=== PATIENT | male | born 1985 | race Caucasian/White ===

== ENCOUNTER 2019-04-30 13:48 | Emergency (ER) | payer SELFPAY ==
[2019-04-30 14:08] VITALS: BP 112/70; PULSE 102; RESP 16; TEMP 36.7; O2SAT 97; BMI 22.9
--- NOTE | 2019-04-30 14:14 | XR_ITS ---
WS: [id number] Right shoulder, 3 views, 04/30/2019 Clinical Data: trauma Comparison: Right scapula x-ray, 09/26/2014, right shoulder, 09/26/2014.. Findings: No fractures or dislocations are seen. The AC joint is normal. The adjacent right clavicle, right sca pula and ribs are normal. The soft tissues are unremarkable. XR/XR shoulder RT min 2V* [id number] Impression: Negative right shoulder.
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
[2019-04-30 14:53] VITALS: BP 110/71; PULSE 90; RESP 16; TEMP 36.7; O2SAT 95
== END 2019-04-30 14:55 | disposition home or self-care (01) ==
PROVIDERS: Emergency Provider Nurse Practitioner Family; Family Provider Nurse Practitioner; PCP Nurse Practitioner
DX: M25.511 Pain in right shoulder (principal)
CPT/HCPCS: 73030; 99281; 99282

== ENCOUNTER 2020-03-26 21:45 | Emergency (ER) | payer SELFPAY ==
--- NOTE | 2020-03-26 21:48 | XR_ITS ---
WS: [id number] Chest with left rib detail, 03/26/2020 Clinical Data: rib pain Comparison: Portable chest, 07/28/2018. Findings: The lungs show no nodules, masses, or effusions. The heart is normal. No pneumonia or pneumothorax is seen. The ribs are intact. No rib fractures seen. No subcutaneous emphysema is present. XR/XR ribs LT mn 3V w CXR1V [id number] Impression: Negative chest with left rib detail.
[2020-03-26 21:59] VITALS: BP 157/83; PULSE 87; RESP 16; TEMP 36.9; O2SAT 98; BMI 20.7
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
[2020-03-26 22:41] VITALS: PULSE 72; RESP 18; O2SAT 98
== END 2020-03-26 22:42 | disposition home or self-care (01) ==
PROVIDERS: Emergency Provider Nurse Practitioner Family
DX: S20.212A Contusion of left front wall of thorax, initial encounter (principal); V89.2XXA Person injured in unspecified motor-vehicle accident, traffic, initial encounter
CPT/HCPCS: 12345; 71101; 99281; 99282

== ENCOUNTER 2020-07-03 22:38 | Emergency (ER) | payer SELFPAY ==
[2020-07-03 22:39] VITALS: BP 129/63; PULSE 90; RESP 18; TEMP 36.6; O2SAT 95; BMI 22.9
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
[2020-07-03] MEDS: tetanus-dipt-pertussis 0.5 mL SDV IM (23:24)
[2020-07-03 23:34] LABS: Basophils # 0.1 10^3/uL (0.0-0.1); Basophils % 0.5 %; Eosinophils # 0.2 10^3/uL (0.0-0.8); Eosinophils % 1.5 %; Hematocrit 44.4 % (42.0-52.0); Hemoglobin 14.3 g/dL (11.7-16.6); Lymphocytes # 2.3 10^3/uL (0.8-4.8); Lymphocytes % 17.9 %; Mean Corpuscular HGB Conc 32.2 g/dL (30.0-36.0); Mean Corpuscular Hemoglobin 30.1 pg (28.0-34.0); Mean Corpuscular Volume 93.5 fL (80-94); Mean Platelet Volume 9.7 fL (7.4-10.4); Monocytes # 1.1 10^3/uL (0.2-0.9); Monocytes % 8.5 %; Neutrophils # 9.27 10^3/uL (1.8-7.7); Neutrophils % 71.3 %; Nucleated Red Blood Cells % 0 %; Platelet Count 375 10^3/cmm (130-400); Red Blood Count 4.75 10^6/uL (4.1-5.3); Red Cell Distribution Width 14.1 % (12.1-15.1)
[2020-07-03 23:54] LABS: Alanine Aminotransferase 45 U/L (0-41); Albumin Level 4.3 g/dL (3.5-5.2); Alcohol Level 145 mg/dL (0-10); Alkaline Phosphatase 115 IU/L (40-130); Aspartate Amino Transferase 44 U/L (0-40); Blood Urea Nitrogen 14 mg/dL (6-20); Calcium 8.1 mg/dL (8.5-10.5); Carbon Dioxide 26 mmol/L (22-29); Chloride 107 mmol/L (98-107); Globulin 2.6 g/dL (1.3-4.6); Glomerular Filtration Rate 110.7 mL/min (90-130); Glucose 103 mg/dL (65-115); Osmolality Calculated 297 mOsm/kg (285-295); Sodium 143 mmol/L (136-145); Total Bilirubin 0.3 mg/dL (0.15-1.2); Total Protein 6.9 g/dL (6.6-8.7)
[2020-07-04] MEDS: HYDROcodone-acetaminophen 5-325 mg Tablet 1 TAB PO (00:26)
[2020-07-04 00:36] VITALS: BP 120/69; PULSE 88; RESP 18; O2SAT 94
== END 2020-07-04 00:36 | disposition home or self-care (01) ==
PROVIDERS: Emergency Provider Emergency Medicine
DX: S22.41XA Multiple fractures of ribs, right side, initial encounter for closed fracture (principal); S27.0XXA Traumatic pneumothorax, initial encounter; V49.9XXA Car occupant (driver) (passenger) injured in unspecified traffic accident, initial encounter; Z23 Encounter for immunization
CPT/HCPCS: 70450; 71045; 71250; 72125; 74176; 80053; 80307; 85025; 90471; 90715; 99283

== ENCOUNTER 2020-07-18 00:50 | Emergency (ER) | payer SELFPAY ==
[2020-07-18 00:53] VITALS: BP 128/69; PULSE 90; RESP 18; TEMP 36.7; O2SAT 96; BMI 22.9
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
[2020-07-18] MEDS: ibuprofen 600 mg Tablet PO (03:07)
[2020-07-18 03:10] VITALS: BP 142/86; PULSE 72; RESP 18; O2SAT 100
--- NOTE | 2020-07-21 13:23 | DCPLANNER ---
assistant department manager had message to speak with patient about getting established with a primary care physician. assistant department manager called phone number [phone], unable to speak with patient at this time, and unable to leave a voicemail due to no voicemail box set up.
== END 2020-07-18 03:11 | disposition home or self-care (01) ==
PROVIDERS: Emergency Provider Nurse Practitioner Family
DX: S22.31XA Fracture of one rib, right side, initial encounter for closed fracture (principal); S46.911A Strain of unspecified muscle, fascia and tendon at shoulder and upper arm level, right arm, initial encounter; X50.0XXA Overexertion from strenuous movement or load, initial encounter
CPT/HCPCS: 71046; 73030; 99283

== ENCOUNTER 2021-07-02 10:48 | Emergency (ER) | payer MEDICAID, SELFPAY ==
[2021-07-02 10:54] VITALS: BP 137/80; PULSE 71; RESP 20; TEMP 36.4; O2SAT 99; BMI 22.2
--- NOTE | 2021-07-02 11:03 | XR_ITS ---
WS: [id number] Right hand, 3 views, 07/02/2021 Clinical Data: injury Comparison: Right hand, 02/04/2019. Findings: No fractures or dislocations are seen. The soft tissues are unremarkable. The joint space s are normal The metacarpals are intact. XR/XR hand RT min 3V* [id number] Impression: Negative right hand.
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
[2021-07-02] MEDS: HYDROcodone-acetaminophen 5-325 mg Tablet 1 TAB PO (11:06)
--- NOTE | 2021-07-05 10:42 | DCPLANNER ---
Addendum entered by Radha Crawford 07/13/21 22:09: Patient had a follow up appointment scheduled with ortho on 07.07.21 - patient did attend appointment. Addendum entered by Radha Crawford 07/06/21 08:36: Patient has a follow up appointment scheduled for Wednesday, July 07, 2021 at 11:[address] De La Fuente at ortho. Clinic will call patient with appointment information. Original Note: Patient called case packer and sealer stating that he needed a referral to ortho. it infrastructure project manager sent patients information to the front staff at the ortho clinic. Patients information will be printed and reviewed. Clinic will call patient with appointment information.
== END 2021-07-02 12:20 | disposition home or self-care (01) ==
PROVIDERS: Emergency Provider Emergency Medicine
DX: M79.641 Pain in right hand (principal); F17.210 Nicotine dependence, cigarettes, uncomplicated
CPT/HCPCS: 73130; 99283

== ENCOUNTER → 2021-07-07 11:14 | Outpatient (BNVA) | payer MEDICAID, SELFPAY | PROVIDERS: Referring Provider Emergency Medicine; Visit Provider Orthopaedic Surgery | DX: S69.91XA Unspecified injury of right wrist, hand and finger(s), initial encounter (principal); X58.XXXA Exposure to other specified factors, initial encounter; M79.641 Pain in right hand | CPT/HCPCS: 73130 ==

== ENCOUNTER 2022-01-22 10:25 | Inpatient (IN) | payer MEDICAID, SELFPAY ==
[2022-01-22] VITALS (14 sets, daily range): BP systolic 96–117; BP diastolic 43–69; PULSE 73–170; RESP 15–20; TEMP 36.4–37.7; O2SAT 93–98; BMI 20.6
--- NOTE | 2022-01-22 10:42 | W.ED.ABDPA2 ---
HPI - Abdominal Pain General: Chief Complaint: Abdominal Pain Stated Complaint: abd pain Time Seen by Provider: 01/22/22 10:30 Source: patient Mode of arrival: ambulatory Limitations: no limitations History of Present Illness: 36-year-old male states over the last 2 days he has had some fevers along with nausea states has been having epigastric pain as well. He states his pain is sharp in nature and has had some nausea denies any vomiting he states his pain is a 7 out of 10. Denies any radiation of his pain he denies any chest pain. Associated Symptoms: Reports fever(s) and nausea; Denies dysuria Review of Systems Const: Reports: fever(s) Eyes: Denies: blurry vision or eye discomfort ENMT: Denies: throat pain or dental pain Card: Denies: chest pain Resp: Denies: dyspnea GI: Reports: abdominal pain and nausea : Denies: dysuria Musc: Denies: neck pain or back pain Skin/Breast: Denies: rash Neuro: Denies: headache(s) Psych: Denies: depression Dennys/Lymph: Denies: easy bruising All/Imm: Denies: urticaria PFSH ED PFSH: Social History Smoking and tobacco status: never smoked Quit status (tobacco): has tried quititng Number of times tried to quit tobacco: 1 Second hand smoke exposure: Yes Physical Exam Const: COMMON NORMALS: no acute distress, patient oriented x3 and healthy appearing HENMT: COMMON NORMALS: normocephalic and atraumatic HEAD & SCALP: normocephalic and atraumatic Eye: COMMON NORMALS: Equal, round and reactive pupils present and EOMs intact bilaterally PUPIL: Yes Equal, round and reactive pupils present Neck/C-Spine: COMMON NORMALS: full ROM and supple Chest: COMMONS NORMALS: normal inspection of the chest and normal palpation of entire chest wall Resp: COMMON NORMALS: normal respiratory effort, No retractions, No use of accessory muscles and clear to auscultation bilaterally AUSCULTATION: clear to auscultation bilaterally Cardio: COMMON NORMALS: regular rate, regular rhythm and No murmurs present (Cardio) RATE: regular rate RHYTHM: regular rhythm GI: COMMON NORMALS: Normal to inspection, nondistended, normoactive bowel sounds present, Soft to palpation and no masses PALPATION: Yes Soft to palpation OTHER: epigastric tenderness Extremity: COMMON NORMALS: normal to inspection and full ROM Neuro: COMMON NORMALS: patient oriented x3, moves all extremities and no focal motor deficits Psych: COMMON NORMALS: mental status grossly normal, Normal thought process present and cooperative THOUGHT PROCESS: Normal thought process present Skin: COMMON NORMALS: no rashes or lesions noted and no wounds GENERAL SKIN EXAM: no rashes or lesions noted Course Vital Signs: Vital signs: Vital Signs Temperature 99.8 F H 01/22/22 11:25 Pulse Rate 109 H 01/22/22 12:30 Respiratory Rate 20 H 01/22/22 12:30 Blood Pressure 96/43 01/22/22 12:30 Pulse Oximetry 95 01/22/22 12:30 Oxygen Delivery Me thod 01/22/22 12:30 MDM - Abdominal Pain Medical Decision Making Patient presents with pyelonephritis he is febrile does have an elevated white count lactate is normal his blood pressure is improved here with IV fluids CT shows bilateral pyelonephritis no kidney stone spoke to hospitalist will admit for IV antibiotics. Lab Data : 01/22/22 11:15 01/22/22 12:20 Labs/Radiology: Radiology Impressions Abdomen/Pelvis CT 01/22/22 10:43 IMPRESSION: Bilateral peripheral linear and wedge-shaped areas of hypoattenuation in the renal parenchyma, concerning for pyelonephritis. Chest X-Ray 01/22/22 10:43 IMPRESSION: No acute cardiopulmonary abnormality identified. Laboratory Results WBC 14.8 10^3/uL (4.0-10.0) H 01/22/22 11:15 RBC 4.64 10^6/uL (4.1-5.3) 01/22/22 11:15 Hgb 13.9 g/dL (11.7-16.6) 01/22/22 11:15 Hct 42.1 % (42.0-52.0) 01/22/22 11:15 MCV 90.7 fl (80-94) 01/22/22 11:15 MCH 30.0 pg (28.0-34.0) 01/22/22 11:15 MCHC 33.0 g/dL (30.0-36.0) 01/22/22 11:15 RDW 13.8 % (12.1-15.1) 01/22/22 11:15 Plt Count 233 10^3/cmm (130-400) 01/22/22 11:15 MPV 12.2 fL (7.4-10.4) H 01/22/22 11:15 Neut % (Auto) 88.8 % 01/22/22 11:15 Lymph % (Auto) 2.1 % 01/22/22 11:15 [place] % (Auto) 8.6 % 01/22/22 11:15 Eos % (Auto) 0.1 % 01/22/22 11:15 Baso % (Auto) 0.4 % 01/22/22 11:15 Neut # (Auto) 11.76 10^3/uL (1.8-7.7) H 01/22/22 11:15 Lymph # (Auto) 0.3 10^3/uL (0.8-4.8) L 01/22/22 11:15 [place] # (Auto) 1.3 10^3/uL (0.2-0.9) H 01/22/22 11:15 Eos # (Auto) 0.0 10^3/uL (0.0-0.8) 01/22/22 11:15 Baso # (Auto) 0.1 10^3/uL (0.0-0.1) 01/22/22 11:15 Nucleated RBC % (auto) 0 % 01/22/22 11:15 Nucleated RBCs # 0.0 /100WBC 01/22/22 11:15 Sodium 134 mmol/L (136-145) L 01/22/22 12:20 Potassium 3.9 mmol/L (3.5-5.1) 01/22/22 12:20 Chloride 96 mmol/L (98-107) L 01/22/22 12:20 Carbon Dioxide 24 mmol/L (22-29) 01/22/22 12:20 Anion Gap 17.9 (5-19) 01/22/22 12:20 BUN 28 mg/dL (6-20) H 01/22/22 12:20 Creatinine 1.6 mg/dL (0.7-1.2) H 01/22/22 12:20 GFR Calculation 49.4 mL/min (90-130) L 01/22/22 12:20 Glucose 83 mg/dL (65-115) 01/22/22 12:20 Calculated Osmolality 283 mOsm/kg (285-295) L 01/22/22 12:20 Lactic Acid 2.2 mmol/L (0.5-2.2) 01/22/22 12:20 Calcium 8.1 mg/dL (8.5-10.5) L 01/22/22 12:20 Total Bilirubin 0.5 mg/dL (0.15-1.2) 01/22/22 12:20 AST 23 U/L (0-40) 01/22/22 12:20 ALT 24 U/L (0-41) 01/22/22 12:20 Alkaline Phosphatase 79 U/L (40-130) 01/22/22 12:20 Total Protein 5.8 g/dL (6.6-8.7) L 01/22/22 12:20 Albumin 2.9 g/dL (3.5-5.2) L 01/22/22 12:20 Globulin 2.9 g/dL (1.3-4.6) 01/22/22 12:20 Lipase 5 U/L (13-60) L 01/22/22 12:20 Urine Color Dark yellow (Yellow) 01/22/22 10:35 Urine Appearance Clear (CLEAR) 01/22/22 10:35 Urine pH 5 (5-7) 01/22/22 10:35 Ur Specific [place] 1.015 (1.005-1.030) 01/22/22 10:35 Urine Protein 2+ (Negative) H 01/22/22 10:35 Urine Glucose (UA) Norm (Normal) 01/22/22 10:35 Urine Ketones Negative (Negative) 01/22/22 10:35 Urine Blood 3+ (Negative) H 01/22/22 10:35 Urine Nitrate Positive (Negative) H 01/22/22 10:35 Urine Bilirubin Neg (Negative) 01/22/22 10:35 Urine Urobilinogen 1 mg/dL (Negative) H 01/22/22 10:35 Ur Leukocyte Esterase 2+ (Negative) H 01/22/22 10:35 Urine RBC 5-10 /hpf (0-2) H 01/22/22 10:35 Urine WBC 40-55 /hpf (0-5) H 01/22/22 10:35 Ur Squamous Epith Cells None /hpf (0-5) 01/22/22 10:35 Amorphous Sediment Not Reportable 01/22/22 10:35 Urine Bacteria 2+ /hpf (NONE) H 01/22/22 10:35 Influenza Type A Ag Negative (Negative) 01/22/22 12:10 Influenza Type B Ag Negative (Negative) 01/22/22 12:10 SARS-CoV-2 Ag (Rapid) negative (Negative) 01/22/22 11:15 Discharge Plan Discharge Patient Disposition: Admitted As Inpatient Clinical Impression: Pyelonephritis Condition: Stable Prescriptions: No Action fluoxetine [Prozac] 20 mg capsule 20 mg PO DAILY Qty: 30 2RF hydrocodone-acetaminophen 5-325 mg tablet 1 tab PO Q6H PRN (Reason: pain) 7 Days Qty: 14 0RF ibuprofen [IBU] 600 mg tablet 600 mg PO TID PRN (Reason: pain) Qty: 20 0RF Rx Instructions: take 1 PO TID PRN pain - take with food to avoid stomach upset prazosin 5 mg capsule 5 mg PO BEDTIME Patient Instructions: Opioid Safety, Pain Management Coding Level of Care Code ED Sample Display Preparer for Maria De Jesus Fwd Exam Comprehensive
--- NOTE | 2022-01-22 10:43 | CTR_ITS ---
PROCEDURE INFORMATION: Exam: CT Abdomen And Pelvis With Contrast Exam date and time: 01/22/2022 11:38 AM Age: 36 years old Clinical indication: Abdominal pain; Generalized; Additional info: Abd pain TECHNIQUE: Imaging protocol: Computed tomography of the abdomen and pelvis with contrast. Radiation optimization: All CT scans at this facility use at least one of these dose optimization techniques: automated exposure control; mA and/or kV adjustment per patient size (includes targeted exams where dose is matched to clinical indication); or iterative reconstruction. Contrast material: OMNI 350; Contrast volume: 100 ml; Contrast route: INTRAVENOUS (IV); COMPARISON: CT chest abd pel wo con 07/03/2020 11:22 PM RADIATION DOSE METRICS: Total DLP (mGy-cm): 393.05 FINDINGS: Liver: Liver is mildly enlarged for size, similar to prior exam. Area of hypoattenuation along the anterior margin of the liver adjacent to the falciform ligament consistent with focal fatty infiltration. Gallbladder and bile ducts: The gallbladder is distended with normal wall thickness and does not demonstrate calcified gallstones. No intra- or extra-hepatic biliary ductal dilatation. Pancreas: The pancreas appears normal. Spleen: The spleen appears normal. Adrenal glands: The adrenals appear normal. Kidneys and ureters: Bilateral peripheral linear and wedge-shaped areas of hypoattenuation in the renal parenchyma. No significant perinephric fat stranding. No hydronephrosis or hydroureter. No renal or ureteral stones. Stomach and bowel: The stomach is unremarkable. The small bowel loops are not abnormally dilated. The large bowel loops are not abnormally dilated. Appendix: No signs of appendicitis. Intraperitoneal space: No ascites or significant fluid collection. Vasculature: The aorta is nonaneurysmal. The IVC appears normal. Lymph nodes: There are no enlarged lymph nodes. Urinary bladder: The bladder is distended and demonstrates no focal contour abnormality. Reproductive: Unremarkable as visualized. Bones/joints: Unremarkable. Soft tissues: Unremarkable. CT/CT abdomen pelvis w con* [id number] IMPRESSION: Bilateral peripheral linear and wedge-shaped areas of hypoattenuation in the renal parenchyma, concerning for pyelonephritis.
--- NOTE | 2022-01-22 10:43 | XRR_ITS ---
PROCEDURE INFORMATION: Exam: XR Chest Exam date and time: 01/22/2022 10:51 AM Age: 36 years old Clinical indication: Fever TECHNIQUE: Imaging protocol: Radiologic exam of the chest. Views: 1 view. COMPARISON: CR XR chest 2V* [id number] 07/18/2020 2:11 AM FINDINGS: Lungs: The lung parenchyma is clear. Pleural spaces: No pneumothorax. No pleural effusion. Heart/Mediastinum: The cardiomediastinal silhouette is within normal limits. Bones/joints: Signs old right posterior 3rd rib fracture. XR/XR chest 1V portable [id number] IMPRESSION: No acute cardiopulmonary abnormality identified.
[2022-01-22] MEDS: morphine 4 mg/mL SDV 1 mL IVP (11:03)
[2022-01-22] MEDS: ondansetron 2 mg/ML SDV 2 mL 4 MG IVP (11:03)
[2022-01-22] MEDS: acetaminophen 325 mg Tablet 650 MG PO (11:04)
[2022-01-22] MEDS: diphenhydrAMINE 50 mg/mL SDV 1mL IVP (11:04)
[2022-01-22] MEDS: sodium chloride 0.9% 1,000 ML 999 ML IV ×2 (11:16→12:48)
[2022-01-22 11:40] LABS: Basophils # 0.1 10^3/uL (0.0-0.1); Basophils % 0.4 %; Eosinophils % 0.1 %; Hematocrit 42.1 % (42.0-52.0); Hemoglobin 13.9 g/dL (11.7-16.6); Lymphocytes # 0.3 10^3/uL (0.8-4.8); Lymphocytes % 2.1 %; Mean Corpuscular Volume 90.7 fl (80-94); Mean Platelet Volume 12.2 fL (7.4-10.4); Monocytes # 1.3 10^3/uL (0.2-0.9); Monocytes % 8.6 %; Neutrophils # 11.76 10^3/uL (1.8-7.7); Nucleated Red Blood Cells % 0 %; Platelet Count 233 10^3/cmm (130-400); Red Blood Count 4.64 10^6/uL (4.1-5.3); Red Cell Distribution Width 13.8 % (12.1-15.1); White Blood Count 14.8 10^3/uL (4.0-10.0)
[2022-01-22] MEDS: iohexol 350 mg/mL 500 mL Btl (per mL) IV (11:40)
[2022-01-22 11:42] LABS: Neutrophils % 88.8 %
[2022-01-22 11:47] LABS: Add Urine Microscopic? YES; Bilirubin Urine Neg (Negative); Blood Urine 3+ (Negative); Glucose Urine UA Norm (Normal); Ketones Urine Negative (Negative); Leukocyte Esterase Urine 2+ (Negative); Nitrate Urine Positive (Negative); Protein Urine 2+ (Negative); Specific Gravity, Urine 1.015 (1.005-1.030); Urine Appearance Clear (CLEAR); Urine Color Dark Yellow (Yellow); Urobilinogen Urine 1 mg/dL (Negative); pH Urine 5 (5-7)
[2022-01-22 11:53] LABS: WBC Urine 40-55 /hpf (0-5)
[2022-01-22 11:54] LABS: Add Urine Culture? Yes; Bacteria Urine 2+ /hpf
[2022-01-22 12:21] LABS: SARS Covid-2 Antigen negative (Negative)
[2022-01-22] MEDS: cefTRIAXone 1,000 MG in sodium chloride 0.9% (plus) 50 ML 100 MG IV ×2 (12:22→15:42)
[2022-01-22] MEDS: HYDROmorphone 1 mg/mL INJ 1 mL IVP (12:27)
[2022-01-22 12:38] LABS: Influenza A by IFA Negative (Negative); Influenza B by IFA Negative (Negative)
[2022-01-22 12:57] LABS: Alanine Aminotransferase 24 U/L (0-41); Albumin Level 2.9 g/dL (3.5-5.2); Alkaline Phosphatase 79 U/L (40-130); Anion Gap 17.9 (5-19); Aspartate Amino Transferase 23 U/L (0-40); Blood Urea Nitrogen 28 mg/dL (6-20); Calcium 8.1 mg/dL (8.5-10.5); Carbon Dioxide 24 mmol/L (22-29); Chloride 96 mmol/L (98-107); Globulin 2.9 g/dL (1.3-4.6); Glomerular Filtration Rate 49.4 mL/min (90-130); Glucose 83 mg/dL (65-115); Lipase 5 U/L (13-60); Osmolality Calculated 283 mOsm/kg (285-295); Potassium 3.9 mmol/L (3.5-5.1); Sodium 134 mmol/L (136-145); Total Bilirubin 0.5 mg/dL (0.15-1.2); Total Protein 5.8 g/dL (6.6-8.7)
[2022-01-22 12:58] LABS: Lactic Sepsis W/Reflex 2.2 mmol/L (0.5-2.2)
[2022-01-22 14:18] LABS: Reflex Lactate Order REFLEX LACTIC ORDERD
--- NOTE | 2022-01-22 15:22 | P.HP_ITS ---
Providers/Chief Complaint Admitting Physician: Kwsai Dawkins MD Chief Complaint: abd pain History of Present Illness Griffin Long SR is a 36 year old male with past medical history of ADHD on Adderall presents to the ER today because of bilateral flank pain going on for last 4 days associated with nausea, vomiting, dysuria and difficulty in urine output along with decreased urine output for 3 days. In the ER he was found to have elevated white count. CT abdomen pelvis was done which is concerning for possible bilateral pyelonephritis. Hospitalist team was consulted for admission and further evaluation and management. Review of Systems General: Reports: 10 or more systems reviewed and unremarkable except in HPI and below Const: Denies: fever(s), chills, body aches, change in appetite, change in weight, malaise, night sweats, diaphoresis, change in sleep pattern, daytime sleepiness or snoring Eyes: Denies: change in vision, blurry vision, photophobia, eye discomfort or eye discharge ENMT: Denies: throat pain, enlarged tonsils, hoarseness, mouth pain, oral sores, dry mouth, tinnitus, nasal congestion or post nasal drip Card: Denies: chest pain, palpitations, irregular heart rhythm, edema, swelling of feet/ankles, lightheadedness, syncope, pre-syncope, dyspnea on exertion, orthopnea, leg pain with exertion or acrocyanosis Resp: Denies: dyspnea, productive cough, non-productive cough, wheezing, stridor, pain on inspiration, change in phlegm color, hemoptysis or chest congestion GI: Denies: abdominal pain, nausea, vomiting, hematemesis, coffee ground emesis, dysphagia, heartburn, diarrhea, constipation, bloating, GI cramping, change in bowel habits, pain on defecation, hematochezia or melena : Denies: flank pain, difficulty urinating, dysuria, urinary frequency, urinary urgency, urinary hesitancy, urinary dribbling, difficulty starting urination, change in urine stream, nocturia or hematuria Musc: Denies: neck pain, back pain, extremity pain, joint pain, joint swelling, joint redness, joint stiffness or limited range of motion Neuro: Denies: headache(s), numbness in extremities, weakness in extremities, sensory changes, lack of coordination, difficulty walking, frequent falls, dizziness, vertigo, confusion, Slurred speech present, difficulty communicating thoughts or seizure-like activity Psych: Denies: anxiety, depression, mood swings, panic attacks, hopelessness or irritability Endo: Denies: polyuria, polydipsia, tired all the time, cold intolerance, excessive sweating, flushing or heat intolerance Dennys/Lymph: Denies: easy bruising or easy bleeding All/Imm: Denies: tongue swelling, facial swelling or acute wheezing Medications/Allergies Home Medications Medication Instructions Recorded Confirmed Last Taken Type dextroamphetamine-amphetamine ER 10 mg PO BID 01/22/22 01/22/22 01/21/22 History 10 mg 24hr capsule,extend release dicyclomine 10 mg capsule 10 mg PO BID PRN Abdominal 01/22/22 01/22/22 Unknown History Discomfort gabapentin 300 mg capsule 300 mg PO TID 01/22/22 01/22/22 01/21/22 History montelukast 10 mg tablet 10 mg PO DAILY 01/22/22 01/22/22 01/21/22 History trazodone 50 mg tablet 50 mg PO BEDTIME 01/22/22 01/22/22 01/21/22 History Allergies Allergy/AdvReac Type Severity Reaction Status Date / Time contrast dye Allergy Intermediate ALGY-Rash Uncoded 07/07/21 11:04 PFSH Acute PFSH: Medical History (Updated 01/22/22 @ 15:34 by Kwasi Dawkins MD) Alcohol use disorder, moderate, dependence Generalized anxiety disorder Major depressive disorder, recurrent severe without psychotic features Nicotine dependence, unspecified, uncomplicated Post-traumatic stress disorder, chronic Social History (Updated 01/22/22 @ 15:23 by Kwasi Dawkins MD) Smoking and tobacco status: current every day smoker cigarettes Packs smoked per day: 1 Years cigarettes smoked: 20 Quit status (tobacco): has tried quititng Number of times tried to quit tobacco: 1 Second hand smoke exposure: Yes Vitals/I&O/Wt Last Vital Signs Temp 99.8 F H 01/22/22 11:25 Pulse 109 H 01/22/22 12:30 Resp 20 H 01/22/22 12:30 BP 117/60 01/22/22 14:44 Pulse Ox 95 01/22/22 12:30 O2 Del Method 01/22/22 12:30 01/22/22 01/22/22 01/22/22 06:59 14:59 22:59 Intake Total 1000 / 1000 Balance 1000 / 1000 Weight last 48 hrs Weight 65.317 kg Physical Exam Narrative: General: No acute distress, AO x3 HEENT: PERRLA, pupils bilaterally equal and reactive Chest: Normal vesicular breath sounds, no added sounds, equal good air entry bilaterally CVS: S1-S2 regular, no murmurs, no tachycardia, no gallops, no rubs Abdomen: Soft, nontender, no organomegaly, bowel sounds present, bilateral flank pain present Neuro: No focal deficits, no facial deformity, AO x3, power 5/5 in all limbs Data : 01/23/22 05:00 01/23/22 05:00 Micro: Microbiology 01/22/22 12:25 Blood Culture - Preliminary Blood SPECIMEN COLLECTED 01/22/22 12:25 Blood Culture - Preliminary Blood SPECIMEN COLLECTED A&P Assessment and plan (1) Sepsis: Present on admission. Ruled in for tachycardia, fever, leukocytosis, endorgan damage with kidney disorder. Qualifiers: Acute renal failure type: with acute tubular necrosis Sepsis acute organ dysfunction status: with acute organ dysfunction Severe sepsis acute organ dysfunction type: acute renal failure (2) Pyelonephritis: Seen on CT scan. Bilateral. No obstructive uropathy. Follow blood culture, urine culture. Continue with empiric ceftriaxone for now. Will de-escalate as per culture results. IV fluids with normal saline at 75 cc/h. Keep neuro pressure over 65. Tylenol for fever. (3) Alcohol use disorder, moderate, dependence: Check alcohol level. Urine drug screen. [facility] protocol. (4) Acute kidney injury: Present on admission. Most likely secondary to sepsis. IV fluid as above. Check urine lites, urine creatinine. Medical reconciliation done for nephrotoxic drugs. Monitor BMP daily. Attestations Medical Necessity Statement*: admission for more than 2 midnights for management of sepsis secondary to pyelonephritis Time Spent in Patient Care: Greater than 35 minutes Coding Level of Care Code Acute Provider Education Specialist for [facility] Fwd Diagnoses Sepsis A41.9 Acute renal failure type: with acute tubular necrosis Sepsis acute organ dysfunction status: with acute organ dysfunction Severe sepsis acute organ dysfunction type: acute renal failure Pyelonephritis N12 Alcohol use disorder, moderate, dependence F10.20 Acute kidney injury N17.9
[2022-01-22] MEDS: morphine 4 mg/mL SDV 1 mL 2 MG IVP ×3 (15:37→23:35)
[2022-01-22] MEDS: heparin 5,000 unit/mL INJ 1 mL 5000 UNIT SUBCUT ×2 (15:44→23:23)
[2022-01-22 16:41] LABS: Iron 7 ug/dL (59-158); Lactic Acid level (Lactate) 2.3 mmol/L (0.5-2.2); Percent Saturation 3.4 % (20-50); Total Iron Binding Capacity 204 mcg/dl; Unsaturated Iron Binding 197 ug/dL (112-347)
[2022-01-22 16:48] LABS: Thyroid Stimulating Hormone 0.21 uIU/mL (0.27-4.20)
[2022-01-22 16:49] LABS: Alcohol Level < 10 mg/dL (0-10)
[2022-01-22 16:54] LABS: Folate Level 4.5 ng/mL (4.5-32.2)
[2022-01-22 16:55] LABS: Procalcitonin 9.81 ng/mL (0-0.5); Vitamin B12 1217 pg/mL (232-1245)
[2022-01-22] MEDS: sodium chloride 0.9% 1,000 ML 75 ML IV (17:56)
[2022-01-22] MEDS: HYDROcodone-acetaminophen 5-325 mg Tablet 1 TAB PO (17:56)
[2022-01-22] MEDS: ferrous gluconate 324 mg Tablet PO (17:56)
[2022-01-22] MEDS: famotidine 20 mg Tablet PO (17:56)
[2022-01-22] MEDS: gabapentin 300 mg Capsule PO (20:11)
[2022-01-22] MEDS: trazodone 50 mg Tablet PO (20:11)
[2022-01-23] VITALS (8 sets, daily range): BP systolic 104–133; BP diastolic 60–80; PULSE 62–68; RESP 15–18; TEMP 36.6–36.7; O2SAT 95–98
[2022-01-23] MEDS: HYDROcodone-acetaminophen 5-325 mg Tablet 1 TAB PO ×3 (01:28→18:38)
[2022-01-23] MEDS: acetaminophen 325 mg Tablet 650 MG PO ×4 (02:26→23:14)
[2022-01-23] MEDS: morphine 4 mg/mL SDV 1 mL 2 MG IVP ×4 (04:33→19:49)
[2022-01-23 05:38] LABS: Hematocrit 36.5 % (42.0-52.0); Hemoglobin 11.4 g/dL (11.7-16.6); Mean Corpuscular HGB Conc 31.2 g/dL (30.0-36.0); Mean Corpuscular Hemoglobin 29.7 pg (28.0-34.0); Mean Corpuscular Volume 95.1 fl (80-94); Platelet Count 232 10^3/cmm (130-400); Red Blood Count 3.84 10^6/uL (4.1-5.3); Red Cell Distribution Width 14.3 % (12.1-15.1); White Blood Count 16.1 10^3/uL (4.0-10.0)
[2022-01-23 06:01] LABS: Alanine Aminotransferase 23 U/L (0-41); Albumin Level 2.6 g/dL (3.5-5.2); Alkaline Phosphatase 128 U/L (40-130); Anion Gap 13.8 (5-19); Aspartate Amino Transferase 20 U/L (0-40); Blood Urea Nitrogen 30 mg/dL (6-20); Calcium 9.2 mg/dL (8.5-10.5); Carbon Dioxide 24 mmol/L (22-29); Chloride 102 mmol/L (98-107); Chol HDL Ratio 4.11 mg/dL (1.0-5.00); Cholesterol 78 mg/dL (0-200); Globulin 3.2 g/dL (1.3-4.6); Glomerular Filtration Rate 76.2 mL/min (90-130); Glucose 144 mg/dL (65-115); HDL Cholesterol 19 mg/dL (60-100); LDL Cholesterol Calculated 24 mg/dL (50-129); Osmolality Calculated 289 mOsm/kg (285-295); Potassium 4.8 mmol/L (3.5-5.1); Sodium 135 mmol/L (136-145); Total Bilirubin 0.2 mg/dL (0.15-1.2); Total Protein 5.8 g/dL (6.6-8.7); Triglycerides 176 mg/dL (0-150); VLDL Cholestrol Calculation 35 mg/dL (0-30)
[2022-01-23 06:06] LABS: Estmated Average Glucose 100; Hemoglobin A1C 5.1 % (4.0-6.0)
[2022-01-23 06:08] LABS: Total Cells Counted 100 (0-100)
[2022-01-23 06:10] LABS: Absolute Neutrophil 14.3 10^3/cmm (1.4-6.5); Absolute Segmented Neutrophil 12.2 10/cmm (1.6-7.1); Band Neutrophils Absolute 2.1 10^3/cmm (0.0-1.2); Eosinophils 0 %; Lymphocytes 5 %; Lymphocytes Absolute 0.8 10^3/cmm (1.2-3.4); Platelet Estimate Normal (Normal); Segmented Neutrophils 76 %
[2022-01-23 06:11] LABS: Dohle Bodies 1+; Giant Platelets Trace; Toxic Granulation 1+
[2022-01-23] MEDS: sodium chloride 0.9% 1,000 ML 75 ML IV (06:31)
[2022-01-23 07:05] LABS: Amphetamines Screen Urine Positive (Negative); Barbiturates Screen Urine Negative (Negative); Benzodiazepines Screen Urine Negative (Negative); Cocaine Screen Urine Negative (Negative); Opiate Screen Urine Positive (Negative); PCP Screen Urine Negative (Negative); THC Screen Urine Positive (Negative)
[2022-01-23 07:18] LABS: Potassium, Radom Urine 21 mmol/L; Urine Creatinine 62 mg/dL (39-259); Urine Random Chloride 47 mmol/L; Urine Random Sodium 51 mmol/L
[2022-01-23] MEDS: ferrous gluconate 324 mg Tablet PO ×2 (08:48→18:38)
[2022-01-23] MEDS: gabapentin 300 mg Capsule PO ×3 (08:48→20:40)
[2022-01-23] MEDS: famotidine 20 mg Tablet PO ×2 (08:49→18:43)
[2022-01-23] MEDS: heparin 5,000 unit/mL INJ 1 mL 5000 UNIT SUBCUT ×3 (08:51→23:17)
--- NOTE | 2022-01-23 11:12 | P.PN_ITS ---
Subjective Subjective: No acute events overnight. Patient denies any nausea vomiting, headache. States he is feeling a lot better now. States flank pain is resolving. He is able to pass more urine without much dysuria though still has occasional burning. Has remained hemodynamically stable and afebrile. Vitals/I&O/Wt Last Vital Signs Temp 98.0 F 01/23/22 07:24 Pulse 62 01/23/22 07:24 Resp 15 01/23/22 07:24 BP 110/67 01/23/22 07:24 Pulse Ox 96 01/23/22 07:24 O2 Del Method 01/23/22 07:24 01/22/22 01/23/22 01/23/22 23:59 06:59 14:59 Intake Total 480 / 480 Output Total Balance 480 / 480 Weight last 48 hrs Weight 65.317 kg Weight 65.317 kg Weight 65.317 kg Physical Exam Narrative: General: No acute distress, AO x3 HEENT: PERRLA, pupils bilaterally equal and reactive Chest: Normal vesicular breath sounds, no added sounds, equal good air entry bilaterally CVS: S1-S2 regular, no murmurs, no tachycardia, no gallops, no rubs Abdomen: Soft, nontender, no organomegaly, bowel sounds present, bilateral flank pain present Neuro: No focal deficits, no facial deformity, AO x3, power 5/5 in all limbs Data : 01/23/22 05:00 01/23/22 05:00 Micro: Microbiology 01/22/22 10:35 Urine Culture - Preliminary Urine,Clean Catch Gram Negative Rods 01/22/22 12:25 Blood Culture - Preliminary Blood SPECIMEN COLLECTED 01/22/22 12:25 Blood Culture - Preliminary Blood SPECIMEN COLLECTED A&P Assessment and plan (1) Sepsis: Present on admission. Ruled in for tachycardia, fever, leukocytosis, endorgan damage with kidney disorder. Qualifiers: Sepsis acute organ dysfunction status: with acute organ dysfunction Severe sepsis acute organ dysfunction type: acute renal failure Acute renal failure type: with acute tubular necrosis (2) Pyelonephritis: Patient continues to have leukocytosis but clinically feeling a lot better now. Has remained afebrile. Seen on CT scan. Bilateral. No obstructive uropathy. Follow-up blood cultures. Urine cultures preliminary positive for gram-negative rods. Continue with empiric ceftriaxone for now. Will change antibiotics as per culture speciation and sensitivities. Stop IV fluids. Patient eating well. Keep neuro pressure over 65. Tylenol for fever. (3) Alcohol use disorder, moderate, dependence: Check alcohol level. Urine drug screen. [facility] protocol. (4) Acute kidney injury: Present on admission. Most likely secondary to sepsis. Resolved. Medical reconciliation done for nephrotoxic drugs. Monitor BMP daily. Plan Urine drug screen positive for amphetamines most likely secondary to consumption of Adderall at home for ADHD. Regular diet. Famotidine for PUD prophylaxis Heparin for DVT prophylaxis. Discharge planning: Plan to discharge home with caregiver once medically stable. Attestations Medical Necessity Statement*: Requires further hospitalization for management of bilateral pyelonephritis Time Spent in Patient Care: Greater than 35 minutes Coding Level of Care Code Acute Building Admin for [facility] Fwd Diagnoses Sepsis A41.9 Sepsis acute organ dysfunction status: with acute organ dysfunction Severe sepsis acute organ dysfunction type: acute renal failure Acute renal failure type: with acute tubular necrosis Pyelonephritis N12 Alcohol use disorder, moderate, dependence F10.20 Acute kidney injury N17.9
[2022-01-23 11:16] LABS: Eosinophil Urine No Eosinophils Seen; Urine Eosinophil Count 0 (0-0)
[2022-01-23] MEDS: cefTRIAXone 1,000 MG in sodium chloride 0.9% (plus) 50 ML 100 MG IV (15:08)
[2022-01-23] MEDS: trazodone 50 mg Tablet PO (20:40)
[2022-01-24] VITALS (11 sets, daily range): BP systolic 113–135; BP diastolic 65–77; PULSE 77–101; RESP 13–20; TEMP 36.8–39.3; O2SAT 90–98
[2022-01-24] MEDS: morphine 4 mg/mL SDV 1 mL 2 MG IVP ×2 (00:31→05:04)
--- NOTE | 2022-01-24 00:39 | PC.NURSE ---
FEVER Fever 100.3 with VS check. Already received po Tylenol. Also continues to c/o headache tonight. Cool cloth to forehead and across eyes. O2 sat was 90%. No SOB. Placed on 2l NC while febrile and also received IV Morphine for pain. Sat up to 96%
[2022-01-24] MEDS: HYDROcodone-acetaminophen 5-325 mg Tablet 1 TAB PO ×3 (03:23→20:16)
[2022-01-24 05:39] LABS: Basophils # 0.1 10^3/uL (0.0-0.1); Basophils % 0.6 %; Eosinophils % 0.3 %; Hemoglobin 12.1 g/dL (11.7-16.6); Lymphocytes # 1.2 10^3/uL (0.8-4.8); Lymphocytes % 10.3 %; Mean Corpuscular HGB Conc 32.7 g/dL (30.0-36.0); Mean Corpuscular Hemoglobin 29.4 pg (28.0-34.0); Mean Corpuscular Volume 89.8 fl (80-94); Mean Platelet Volume 10.9 fL (7.4-10.4); Monocytes # 1.9 10^3/uL (0.2-0.9); Monocytes % 15.6 %; Neutrophils # 8.66 10^3/uL (1.8-7.7); Neutrophils % 71.6 %; Nucleated Red Blood Cells % 0 %; Platelet Count 219 10^3/cmm (130-400); Red Blood Count 4.12 10^6/uL (4.1-5.3); Red Cell Distribution Width 14.4 % (12.1-15.1); White Blood Count 12.1 10^3/uL (4.0-10.0)
[2022-01-24 06:03] LABS: Alanine Aminotransferase 23 U/L (0-41); Albumin Level 2.7 g/dL (3.5-5.2); Alkaline Phosphatase 134 U/L (40-130); Anion Gap 13.1 (5-19); Aspartate Amino Transferase 21 U/L (0-40); Blood Urea Nitrogen 26 mg/dL (6-20); Calcium 9.1 mg/dL (8.5-10.5); Carbon Dioxide 27 mmol/L (22-29); Chloride 97 mmol/L (98-107); Globulin 3.4 g/dL (1.3-4.6); Glomerular Filtration Rate 57.7 mL/min (90-130); Glucose 84 mg/dL (65-115); Osmolality Calculated 280 mOsm/kg (285-295); Potassium 4.1 mmol/L (3.5-5.1); Sodium 133 mmol/L (136-145); Total Bilirubin 0.3 mg/dL (0.15-1.2); Total Protein 6.1 g/dL (6.6-8.7)
[2022-01-24] MEDS: acetaminophen 325 mg Tablet 650 MG PO ×2 (07:48→19:14)
[2022-01-24] MEDS: ferrous gluconate 324 mg Tablet PO ×2 (07:49→17:24)
[2022-01-24] MEDS: famotidine 20 mg Tablet PO ×2 (07:49→17:24)
[2022-01-24] MEDS: gabapentin 300 mg Capsule PO ×3 (07:49→20:16)
[2022-01-24] MEDS: heparin 5,000 unit/mL INJ 1 mL 5000 UNIT SUBCUT ×2 (07:50→23:07)
--- NOTE | 2022-01-24 12:02 | PC.CHAP ---
Pastoral Care Encounter/Spiritual Assessment Type of Contact [] Declined jack frame tender visit [] Patient/Family/Request visit [] Outpatient visit [] Follow-up visit [] Physician referral [] Code/Alert [x] Routine visit [] Staff referral [] Actively dying [] Patient sleeping [] Family support [] [] Out of room [] Palliative care [] [] Receiving care in room [] Pre-surgical visit [] Trauma [] Long length of stay [] ICU visit [] Other: Relational/Emotional Strength [x] Patient feels connected with others/family/visitors/staff [] Distress [] Loneliness/isolation [] Abandonment Spirituality of Patient [x] Person of Clementine [] Attends Christian of their Clementine [x] Believes in Prayer [] Reads Bible or Congregational materials [] There are Spiritual issues to be addressed Engineer [employer]ductor Interventions [x] Prayer [x] Active listening [] Non-anxious presence [] Spiritual/emotional support [] Crisis/trauma care [] Spiritual counseling [] Bereavement support [] Provided bereavement packet [] Provided Bible/devotional materials [] Provided toy/stuffed animal, coloring book to patient or family member [] Provided Communion [] Anointing/[place] [] Salvation [] Completed spiritual assessment [] Other: Impact on Illness or Injury [] Angry [] Fearful [] Anxious [] Often cries [] Exhaustion [] Unable to work [] Unable to attend orthodox [] Unable to walk/stand [] Unable to read [] Unable to drive [] Unable to eat/drink [] Unable to sleep [] Unable to be with family [] Patient intubated [] Other: Summary Time spent with patient patient conplained mof stomach pain
--- NOTE | 2022-01-24 13:58 | P.PN_ITS ---
Subjective Subjective: seen this AM no acute events overnight pt states he has a fever, his belly hurts and he wants 4 mg morphine as it lasts longer for him he has never seen urology before Vitals/I&O/Wt Last Vital Signs Temp 99.9 F H 01/24/22 12:00 Pulse 77 01/24/22 12:00 Resp 16 01/24/22 12:00 BP 117/75 01/24/22 12:00 Pulse Ox 94 01/24/22 12:00 O2 Del Method 01/24/22 07:55 01/23/22 01/24/22 01/24/22 22:59 06:59 14:59 Intake Total 770 / 2088.75 480 / 2568.75 240 / 240 Output Total 2160 / 2160 1600 / 3760 1000 / 1000 Balance -1390 / -71.25 -1120 / -1191.25 -760 / -760 Weight last 48 hrs Weight 65.317 kg Weight 65.317 kg Weight 65.317 kg Physical Exam Narrative: General: No acute distress, AO x3, appears ill HEENT: Nc/at eomi Chest: Expiratory wheezes throughout lung tobar, CVS: S1-S2 regular, no murmurs,no gallops, no rubs Abdomen: Soft, nontender overall with mild tenderness around pelvic region.bowel sounds present, bilateral flank pain present Neuro: non-focal Data : 01/24/22 04:45 01/24/22 04:45 Micro: Microbiology 01/22/22 17:59 MRSA Culture - Final Nose 01/22/22 12:25 Blood Culture - Preliminary Blood NEGATIVE TO DATE 01/22/22 12:25 Blood Culture - Preliminary Blood NEGATIVE TO DATE 01/22/22 10:35 Urine Culture - Preliminary Urine,Clean Catch Gram Negative Rods A&P Assessment and plan (1) Sepsis: Present on admission. Ruled in for tachycardia, fever, leukocytosis, endorgan damage with kidney disorder. Qualifiers: Sepsis acute organ dysfunction status: with acute organ dysfunction Severe sepsis acute organ dysfunction type: acute renal failure Acute renal failure type: with acute tubular necrosis (2) Pyelonephritis: Patient continues to have leukocytosis but clinically feeling a lot better now. Has remained afebrile. Seen on CT scan. Bilateral. No obstructive uropathy. Follow-up blood cultures. Urine cultures preliminary positive for gram-negative rods. Continue with empiric ceftriaxone for now. Will change antibiotics as per culture speciation and sensitivities. Stop IV fluids. Patient eating well. Keep neuro pressure over 65. Tylenol for fever. (3) Alcohol use disorder, moderate, dependence: Check alcohol level. Urine drug screen. [facility] protocol. (4) Acute kidney injury: Present on admission. Most likely secondary to sepsis. Resolved. Medical reconciliation done for nephrotoxic drugs. Monitor BMP daily. Plan Urine drug screen positive for amphetamines most likely secondary to consumption of Adderall at home for ADHD. Add docusate senna for bowel regimen continue IV abx duoneb to be added q6 hr prn resp to eval and tx Regular diet. Famotidine for PUD prophylaxis Heparin for DVT prophylaxis. Discharge planning: Plan to discharge home with caregiver once medically stable. Attestations Medical Necessity Statement*: Requires further hospitalization for management of bilateral pyelonephritis Time Spent in Patient Care: Greater than 35 minutes Coding Level of Care Code Acute Tram Operator for [facility] Fwd Diagnoses Sepsis A41.9 Sepsis acute organ dysfunction status: with acute organ dysfunction Severe sepsis acute organ dysfunction type: acute renal failure Acute renal failure type: with acute tubular necrosis Pyelonephritis N12 Alcohol use disorder, moderate, dependence F10.20 Acute kidney injury N17.9
--- NOTE | 2022-01-24 14:06 | XRR_ITS ---
PROCEDURE INFORMATION: Exam: XR Chest Exam date and time: 01/24/2022 4:03 PM Age: 36 years old Clinical indication: Wheezing TECHNIQUE: Imaging protocol: Radiologic exam of the chest. Views: 1 view. COMPARISON: CR (CHEST, ) 01/22/2022 10:51 AM FINDINGS: Lungs: Stable hyperaerated lungs consistent with deep inspiratory effort vs reactive airway disease vs mild COPD . Pleural spaces: Unremarkable. No pleural effusion. No pneumothorax. Heart/Mediastinum: Unremarkable. No cardiomegaly. Bones/joints: Stable one or more healed right rib fractures. XR/XR chest 1V portable [id number] IMPRESSION: Stable hyperaerated lungs consistent with deep inspiratory effort vs reactive airway disease vs mild COPD .
[2022-01-24] MEDS: cefTRIAXone 1,000 MG in sodium chloride 0.9% (plus) 50 ML 100 MG IV (14:52)
[2022-01-24] MEDS: morphine 4 mg/mL SDV 1 mL 3 MG IVP (15:01)
[2022-01-24] MEDS: ipratropium-albuterol 3 mL Neb INHALATION (16:15)
[2022-01-24] MEDS: sennosides-docusate Tablet 1 TAB PO (17:24)
[2022-01-24] MEDS: trazodone 50 mg Tablet PO (20:16)
[2022-01-25] VITALS (11 sets, daily range): BP systolic 102–126; BP diastolic 61–71; PULSE 59–89; RESP 12–20; TEMP 36.7–37.3; O2SAT 92–99
[2022-01-25] MEDS: HYDROcodone-acetaminophen 5-325 mg Tablet 1 TAB PO ×4 (02:22→20:48)
[2022-01-25] MEDS: acetaminophen 325 mg Tablet 650 MG PO (04:59)
[2022-01-25 05:34] LABS: Basophils # 0.1 10^3/uL (0.0-0.1); Basophils % 0.9 %; Eosinophils # 0.2 10^3/uL (0.0-0.8); Eosinophils % 1.7 %; Hematocrit 42.1 % (42.0-52.0); Hemoglobin 13.9 g/dL (11.7-16.6); Lymphocytes # 1.1 10^3/uL (0.8-4.8); Lymphocytes % 10.1 %; Mean Corpuscular Hemoglobin 29.8 pg (28.0-34.0); Mean Corpuscular Volume 90.1 fl (80-94); Mean Platelet Volume 10.7 fL (7.4-10.4); Monocytes # 2.4 10^3/uL (0.2-0.9); Neutrophils # 6.08 10^3/uL (1.8-7.7); Neutrophils % 58.7 %; Nucleated Red Blood Cells % 0 %; Platelet Count 185 10^3/cmm (130-400); Red Blood Count 4.67 10^6/uL (4.1-5.3); Red Cell Distribution Width 14.5 % (12.1-15.1); White Blood Count 10.4 10^3/uL (4.0-10.0)
[2022-01-25 05:51] LABS: Alanine Aminotransferase 49 U/L (0-41); Alkaline Phosphatase 105 U/L (40-130); Anion Gap 14.7 (5-19); Aspartate Amino Transferase 62 U/L (0-40); Blood Urea Nitrogen 21 mg/dL (6-20); Calcium 9.1 mg/dL (8.5-10.5); Carbon Dioxide 29 mmol/L (22-29); Chloride 93 mmol/L (98-107); Globulin 3.6 g/dL (1.3-4.6); Glomerular Filtration Rate 76.2 mL/min (90-130); Glucose 82 mg/dL (65-115); Magnesium 1.7 mg/dL (1.7-2.3); Osmolality Calculated 278 mOsm/kg (285-295); Potassium 3.7 mmol/L (3.5-5.1); Sodium 133 mmol/L (136-145); Total Bilirubin 0.5 mg/dL (0.15-1.2); Total Protein 6.6 g/dL (6.6-8.7)
[2022-01-25] MEDS: ferrous gluconate 324 mg Tablet PO ×2 (07:34→17:16)
[2022-01-25] MEDS: famotidine 20 mg Tablet PO ×2 (07:34→17:16)
[2022-01-25] MEDS: sennosides-docusate Tablet 1 TAB PO ×2 (07:35→17:16)
[2022-01-25] MEDS: gabapentin 300 mg Capsule PO ×3 (07:35→20:49)
[2022-01-25] MEDS: heparin 5,000 unit/mL INJ 1 mL 5000 UNIT SUBCUT ×3 (07:35→23:41)
[2022-01-25] MEDS: ipratropium-albuterol 3 mL Neb INHALATION ×4 (07:54→20:20)
[2022-01-25] MEDS: morphine 4 mg/mL SDV 1 mL 3 MG IVP ×2 (12:52→19:31)
[2022-01-25 13:43] LABS: Acinetobacter baumannii Not Detected (NOT DETECT); Bacteroides fragilis Not Detected (NOT DETECT); CTX-M Not Detected (NOT DETECT); Citrobacter Not Detected (NOT DETECT); Cronobacter sakazakii Not Detected (NOT DETECT); Enterobacter cloacae complex Not Detected (NOT DETECT); Enterobacter non cloacae Not Detected (NOT DETECT); Fusobacterium necrophorum Not Detected (NOT DETECT); Fusobacterium nucleatum Not Detected (NOT DETECT); Haemophilus influenzae Not Detected (NOT DETECT); IMP Resistance Gene Not Detected (NOT DETECT); KPC Resistance Gene Not Detected (NOT DETECT); Klebsiella pneumoniae group Not Detected (NOT DETECT); Morganella morganii Not Detected (NOT DETECT); NDM Resistance Gene Not Detected (NOT DETECT); Neisseria meningitidis Not Detected (NOT DETECT); OXA Resistance Gene Not Detected (NOT DETECT); Pan Candida Not Detected (NOT DETECT); Pan Gram-Positive Not Detected (NOT DETECT); Proteus mirabilis Not Detected (NOT DETECT); Pseudomonas aeruginosa Not Detected (NOT DETECT); Salmonella Not Detected (NOT DETECT); Serratia Not Detected (NOT DETECT); Serratia marcescens Not Detected (NOT DETECT); Stenotrophomonas maltophilia Not Detected (NOT DETECT); VIM Resistance Gene Not Detected (NOT DETECT)
[2022-01-25] MEDS: cefTRIAXone 1,000 MG in sodium chloride 0.9% (plus) 50 ML 100 MG IV (14:54)
--- NOTE | 2022-01-25 15:05 | CTR_ITS ---
PROCEDURE INFORMATION: Exam: CT Chest With Contrast; Diagnostic Exam date and time: 01/25/2022 4:59 PM Age: 36 years old Clinical indication: Fever; Dyspnea; Additional info: Recurrant fever, pyelo, blood culture positive TECHNIQUE: Imaging protocol: Diagnostic computed tomography of the chest with contrast. Radiation optimization: All CT scans at this facility use at least one of these dose optimization techniques: automated exposure control; mA and/or kV adjustment per patient size (includes targeted exams where dose is matched to clinical indication); or iterative reconstruction. Contrast material: OMNI 350; Contrast volume: 100 ml; Contrast route: INTRAVENOUS (IV); COMPARISON: CT chest abd pel wo con 07/03/2020 11:22 PM RADIATION DOSE METRICS: Total DLP (mGy-cm): 623.58 FINDINGS: Lungs: Centrilobular emphysema. Mild dependent atelectasis in the lower lobes. 3.0 cm mild focal ground-glass opacity in the medial right upper lobe. Pleural spaces: Unremarkable. No pneumothorax. No pleural effusion. Heart: Unremarkable. No cardiomegaly. No pericardial effusion. Lymph nodes: Unremarkable. No enlarged lymph nodes. Vasculature: Unremarkable. No aortic aneurysm. Bones/joints: Unremarkable. No acute fracture. Soft tissues: Unremarkable. PROCEDURE INFORMATION: Exam: CT Abdomen And Pelvis With Contrast Exam date and time: 01/25/2022 4:59 PM Age: 36 years old Clinical indication: Fever; Dyspnea; Additional info: Recurrant fever, pyelo, , blood culture positive TECHNIQUE: Imaging protocol: Computed tomography of the abdomen and pelvis with contrast. Radiation optimization: All CT scans at this facility use at least one of these dose optimization techniques: automated exposure control; mA and/or kV adjustment per patient size (includes targeted exams where dose is matched to clinical indication); or iterative reconstruction. Contrast material: OMNI 350; Contrast volume: 100 ml; Contrast route: INTRAVENOUS (IV); COMPARISON: CT abdomen pelvis w con* [id number] 01/22/2022 11:38 AM RADIATION DOSE METRICS: Total DLP (mGy-cm): 623.58 FINDINGS: Liver: Multiple round hypodensities in the liver are too small to characterize but are most likely cysts. No follow-up imaging is recommended. Gallbladder and bile ducts: Partially contracted gallbladder. Bile ducts are normal. Pancreas: Normal. No ductal dilation. Spleen: Normal. No splenomegaly. Adrenal glands: Normal. No mass. Kidneys and ureters: Inhomogeneous perfusion of both kidneys with ill-defined hypodensities and striations. No calculus or hydronephrosis. Stomach and bowel: Moderate stool in the proximal and transverse colon. The distal colon relatively decompressed. The stomach and small bowel are unremarkable. No wall thickening or obstruction. Appendix: The appendix is visualized and is normal. Intraperitoneal space: Unremarkable. No free air. No significant fluid collection. Vasculature: Unremarkable. No abdominal aortic aneurysm. Lymph nodes: Unremarkable. No enlarged lymph nodes. Urinary bladder: Unremarkable as visualized. Reproductive: Unremarkable as visualized. Bones/joints: Unremarkable. No acute fracture. Soft tissues: Unremarkable. CT/CT chest abd pel w con* IMPRESSION: IMPRESSION: Bilateral pyelonephritis. COMMENTS: Consistent with the [employer]'s Incidental Findings Committee white paper (J Am Akshat Radiol 2018): Any incidental renal lesion less than 1 cm or classified as too small to characterize, or any incidental cystic renal lesion characterized as simple-appearing, is likely benign. No follow-up imaging is recommended for these lesions per consensus recommendations based on imaging criteria.
--- NOTE | 2022-01-25 15:33 | P.PN_ITS ---
Subjective Subjective: seen this am fever 102 overnight flank pain slightly better blood culture from admission positive for e.coli 1/4 bottles family at bedside Vitals/I&O/Wt Last Vital Signs Temp 98.4 F 01/25/22 11:30 Pulse 78 01/25/22 11:34 Resp 18 01/25/22 12:52 BP 118/71 01/25/22 11:30 Pulse Ox 99 01/25/22 11:30 O2 Del Method 01/25/22 11:30 01/25/22 01/25/22 01/25/22 06:59 14:59 22:59 Intake Total 1200 / 1200 Balance 1200 / 1200 Weight last 48 hrs Weight 68.492 kg Weight 65.317 kg Physical Exam Narrative: General: No acute distress, AO x3, appears ill HEENT: Nc/at eomi Chest: Wheezes improved, clearer to auscultation today CVS: S1-S2 regular, no murmurs,no gallops, no rubs Abdomen: Soft, nontender overall with mild tenderness around pelvic region.bowel sounds present, bilateral flank pain present but better Neuro: non-focal Data : 01/25/22 04:34 01/25/22 04:34 Micro: Microbiology 01/22/22 12:25 Blood Culture - Preliminary Blood Escherichia coli 01/24/22 16:58 Gram Stain - Final Sputum - Expectorated Sputum Sputum Culture - Preliminary 01/22/22 10:35 Urine Culture - Final Urine,Clean Catch Escherichia coli 01/22/22 17:59 MRSA Culture - Final Nose A&P Assessment and plan (1) Sepsis: Present on admission. Ruled in for tachycardia, fever, leukocytosis, endorgan damage with kidney disorder. Qualifiers: Sepsis acute organ dysfunction status: with acute organ dysfunction Severe sepsis acute organ dysfunction type: acute renal failure Acute renal failure type: with acute tubular necrosis (2) Pyelonephritis: Patient continues to have leukocytosis but clinically feeling a lot better now. Has remained afebrile. Seen on CT scan. Bilateral. No obstructive uropathy. Follow-up blood cultures. Urine cultures preliminary positive for gram-negative rods. Continue with empiric ceftriaxone for now. Will change antibiotics as per culture speciation and sensitivities. Stop IV fluids. Patient eating well. Keep neuro pressure over 65. Tylenol for fever. (3) Alcohol use disorder, moderate, dependence: Check alcohol level. Urine drug screen. [facility] protocol. (4) Acute kidney injury: Present on admission. Most likely secondary to sepsis. Resolved. Medical reconciliation done for nephrotoxic drugs. Monitor BMP daily. (5) Bacteremia: (6) E coli bacteremia: Repeat blood cultures today 1 out of 4 blood culture positive for E. coli from admission Patient still spiking fever. 102 fever overnight. Will escalate antibiotics to Zosyn at this time Will recheck CT chest abdomen pelvis with IV contrast. Must rule out abscess at this point. Patient is allergic to dye. We will pretreat Will give methylprednisolone 60 mg IV x1, Benadryl 25 mg IV x1 and then to the CT. Patient will need 2 weeks of IV antibiotics from last negative blood culture. Place on NS 100 cc/hr Plan Urine drug screen positive for amphetamines most likely secondary to consumption of Adderall at home for ADHD. Add docusate senna for bowel regimen continue IV abx duoneb to be added q6 hr prn resp to eval and tx Regular diet. Famotidine for PUD prophylaxis Heparin for DVT prophylaxis. Discharge planning: Plan to discharge home with caregiver once medically stable. Attestations Medical Necessity Statement*: E. coli bacteremia. Pyelonephritis. Patient needs continued hospitalization for management of all of the above. Coding Level of Care Code Acute Sign Language Translator for [facility] Fwd Diagnoses Sepsis A41.9 Sepsis acute organ dysfunction status: with acute organ dysfunction Severe sepsis acute organ dysfunction type: acute renal failure Acute renal failure type: with acute tubular necrosis Pyelonephritis N12 Alcohol use disorder, moderate, dependence F10.20 Acute kidney injury N17.9 Bacteremia R78.81 E coli bacteremia R78.81; B96.20
[2022-01-25] MEDS: diphenhydrAMINE 50 mg/mL SDV 1mL 25 MG IVP (16:06)
[2022-01-25] MEDS: sodium chloride 0.9% 1,000 ML 100 ML IV (16:06)
[2022-01-25] MEDS: piperacillin-tazobactam 3.375 GM in sodium chloride 0.9% (plus) 50 ML IV ×2 (16:06→23:44)
[2022-01-25 16:37] LABS: Procalcitonin 3.65 ng/mL (0-0.5)
[2022-01-25] MEDS: iohexol 350 mg/mL 500 mL Btl (per mL) IV (17:30)
[2022-01-25] MEDS: trazodone 50 mg Tablet PO (20:49)
[2022-01-26] VITALS (12 sets, daily range): BP systolic 84–131; BP diastolic 47–92; PULSE 47–76; RESP 12–20; TEMP 36.4–36.7; O2SAT 94–98
[2022-01-26] MEDS: sodium chloride 0.9% 1,000 ML 100 ML IV ×2 (01:46→13:01)
[2022-01-26] MEDS: morphine 4 mg/mL SDV 1 mL 3 MG IVP ×2 (05:38→13:01)
[2022-01-26 05:45] LABS: Basophils % 0.4 %; Hematocrit 37.7 % (42.0-52.0); Hemoglobin 12.5 g/dL (11.7-16.6); Lymphocytes # 0.7 10^3/uL (0.8-4.8); Lymphocytes % 10.2 %; Mean Corpuscular HGB Conc 33.2 g/dL (30.0-36.0); Mean Corpuscular Hemoglobin 29.6 pg (28.0-34.0); Mean Corpuscular Volume 89.3 fl (80-94); Mean Platelet Volume 11.2 fL (7.4-10.4); Monocytes # 0.7 10^3/uL (0.2-0.9); Monocytes % 9.7 %; Neutrophils # 4.92 10^3/uL (1.8-7.7); Neutrophils % 69.9 %; Nucleated Red Blood Cells % 0 %; Platelet Count 187 10^3/cmm (130-400); Red Blood Count 4.22 10^6/uL (4.1-5.3); Red Cell Distribution Width 14.2 % (12.1-15.1)
[2022-01-26 06:05] LABS: Anion Gap 16.5 (5-19); Blood Urea Nitrogen 18 mg/dL (6-20); Calcium 8.8 mg/dL (8.5-10.5); Carbon Dioxide 25 mmol/L (22-29); Chloride 101 mmol/L (98-107); Glucose 289 mg/dL (65-115); Osmolality Calculated 298 mOsm/kg (285-295); Potassium 4.5 mmol/L (3.5-5.1); Sodium 138 mmol/L (136-145)
--- NOTE | 2022-01-26 06:57 | PC.NURSE ---
Bedside Report given to Debbie LEE at this time
[2022-01-26] MEDS: ipratropium-albuterol 3 mL Neb INHALATION ×3 (07:40→16:16)
[2022-01-26] MEDS: ferrous gluconate 324 mg Tablet PO ×2 (07:54→16:51)
[2022-01-26] MEDS: piperacillin-tazobactam 3.375 GM in sodium chloride 0.9% (plus) 50 ML IV ×2 (07:56→16:47)
[2022-01-26] MEDS: heparin 5,000 unit/mL INJ 1 mL 5000 UNIT SUBCUT ×2 (07:57→15:38)
[2022-01-26] MEDS: sennosides-docusate Tablet 1 TAB PO ×2 (09:12→16:51)
[2022-01-26] MEDS: gabapentin 300 mg Capsule PO ×3 (09:12→21:20)
[2022-01-26] MEDS: famotidine 20 mg Tablet PO ×2 (09:12→16:51)
[2022-01-26] MEDS: HYDROcodone-acetaminophen 5-325 mg Tablet 1 TAB PO ×2 (09:25→21:20)
--- NOTE | 2022-01-26 13:29 | PM.PN ---
Subjective Subjective: seen today no acute events overnight bcx positive 03/23 bottle Vitals/I&O/Wt Last Vital Signs Temp 98.0 F 01/26/22 11:08 Pulse 52 L 01/26/22 11:56 Resp 16 01/26/22 13:01 BP 131/79 01/26/22 11:08 Pulse Ox 96 01/26/22 11:56 O2 Del Method 01/26/22 11:56 01/25/22 01/26/22 01/26/22 22:59 06:59 14:59 Intake Total 700 / 1900 1016.667 / 2916.667 1650 / 1650 Output Total 1200 / 1200 600 / 1800 Balance -500 / 700 416.667 / 8317.345 5150 / 1650 Weight last 48 hrs Weight 68.13 kg Weight 68.492 kg Physical Exam Narrative: General: No acute distress, AO x3, appears well today HEENT: Nc/at eomi Chest: mild wheezes, no c/w/r CVS: S1-S2 regular, no murmurs,no gallops, no rubs Abdomen: Soft, nontender, overall with mild tenderness around pelvic region.bowel sounds present, bilateral flank pain present but better Neuro: non-focal Data : 01/26/22 04:53 01/26/22 04:53 Micro: Microbiology 01/24/22 16:58 Gram Stain - Final Sputum - Expectorated Sputum Sputum Culture - Final 01/25/22 15:30 Blood Culture - Preliminary Blood SPECIMEN COLLECTED 01/25/22 15:28 Blood Culture - Preliminary Blood SPECIMEN COLLECTED 01/22/22 12:25 Blood Culture - Preliminary Blood Escherichia coli A&P Assessment and plan (1) Sepsis: Qualifiers: Sepsis acute organ dysfunction status: with acute organ dysfunction Severe sepsis acute organ dysfunction type: acute renal failure Acute renal failure type: with acute tubular necrosis (2) Pyelonephritis: Patient continues to have leukocytosis but clinically feeling a lot better now. Has remained afebrile. Seen on CT scan. Bilateral. No obstructive uropathy. Follow-up blood cultures. Urine cultures preliminary positive for gram-negative rods. Continue with zosyn now. Will change antibiotics as per culture speciation and sensitivities. Stop IV fluids. Patient eating well. Keep neuro pressure over 65. Tylenol for fever. (3) Alcohol use disorder, moderate, dependence: Check alcohol level. Urine drug screen. [facility] protocol. (4) Acute kidney injury: Present on admission. Most likely secondary to sepsis. Resolved. Medical reconciliation done for nephrotoxic drugs. Monitor BMP daily. (5) Bacteremia: (6) E coli bacteremia: Repeat blood cultures today 1 out of 4 blood culture positive for E. coli from admission Afebrile overnight. Will escalate antibiotics to Zosyn at this time CT chest abdomen pelvis with IV contrast done. Abscess not present. Patient will need 2 weeks of IV antibiotics from last negative blood culture. Place on NS 100 cc/hr Plan Urine drug screen positive for amphetamines most likely secondary to consumption of Adderall at home for ADHD. Add docusate senna for bowel regimen continue IV abx duoneb to be added q6 hr prn resp to eval and tx Regular diet. Famotidine for PUD prophylaxis Heparin for DVT prophylaxis. Discharge planning: Plan to discharge home with caregiver once medically stable. Attestations Medical Necessity Statement*: E. coli bacteremia. Pyelonephritis. Patient needs continued hospitalization for management of all of the above. Coding Level of Care Code Acute Administrative Sales Assistant for [facility] Fwd Diagnoses Sepsis A41.9 Sepsis acute organ dysfunction status: with acute organ dysfunction Severe sepsis acute organ dysfunction type: acute renal failure Acute renal failure type: with acute tubular necrosis Pyelonephritis N12 Alcohol use disorder, moderate, dependence F10.20 Acute kidney injury N17.9 Bacteremia R78.81 E coli bacteremia R78.81; B96.20
[2022-01-26] MEDS: trazodone 50 mg Tablet PO (21:20)
[2022-01-27] VITALS: BP 118/60; PULSE 76; RESP 12; TEMP 36.7; O2SAT 96
[2022-01-27] MEDS: piperacillin-tazobactam 3.375 GM in sodium chloride 0.9% (plus) 50 ML IV (00:39)
[2022-01-27] MEDS: heparin 5,000 unit/mL INJ 1 mL 5000 UNIT SUBCUT ×2 (00:44→09:15)
[2022-01-27 04:00] VITALS: BP 94/50; PULSE 60; RESP 12; TEMP 36.8; O2SAT 93
[2022-01-27] MEDS: HYDROcodone-acetaminophen 5-325 mg Tablet 1 TAB PO ×2 (04:10→09:55)
--- NOTE | 2022-01-27 06:58 | PC.NURSE ---
Bedside report given to Debbie LEE at this time
[2022-01-27 08:00] VITALS: BP 146/75; PULSE 70; PULSE 74; RESP 16; TEMP 36.6; O2SAT 94; O2SAT 96
[2022-01-27] MEDS: ipratropium-albuterol 3 mL Neb INHALATION (08:10)
[2022-01-27] MEDS: ferrous gluconate 324 mg Tablet PO (09:15)
[2022-01-27] MEDS: famotidine 20 mg Tablet PO (09:16)
[2022-01-27] MEDS: sennosides-docusate Tablet 1 TAB PO (09:16)
[2022-01-27] MEDS: gabapentin 300 mg Capsule PO (09:16)
--- NOTE | 2022-01-27 09:36 | PM.DCS ---
Discharge Providers Date of Admission: 01/22/22 13:16 Date of Discharge: January 27, 2022 Attending Provider at Admission: Kwasi Dawkins MD Attending Provider at Discharge: Carrie Rust MD Diagnoses at Discharge Discharge Diagnosis (1) Sepsis: Status: Acute Qualifiers: Acute renal failure type: with acute tubular necrosis Sepsis acute organ dysfunction status: with acute organ dysfunction Severe sepsis acute organ dysfunction type: acute renal failure (2) Pyelonephritis: Status: Acute (3) Alcohol use disorder, moderate, dependence: Status: Acute (4) Acute kidney injury: Status: Acute (5) Bacteremia: Status: Acute (6) E coli bacteremia: Status: Acute Reason for Visit Reason for Visit: abd pain Brief History: Griffin Long SR is a 36 year old male with past medical history of ADHD on Adderall presents to the ER today because of bilateral flank pain going on for last 4 days associated with nausea, vomiting, dysuria and difficulty in urine output along with decreased urine output for 3 days.? In the ER he was found to have elevated white count.? CT abdomen pelvis was done which is concerning for possible bilateral pyelonephritis.? Hospitalist team was consulted for admission and further evaluation and management. Hospital Course Hospital Course She was admitted for sepsis secondary to pyelonephritis. He also had gram-negative bacteremia with E. coli. Repeat cultures have been negative to date so far. Sensitive to ceftriaxone according to urine culture. Patient did spike fever up until 01/26/2011/06/2021. CT chest abdomen pelvis was repeated at that time there was no abscess. Plan to send him home on ceftriaxone 1 g IV daily for total of 14-days. Due to his drug abuse history we will not place a PICC line and he will come to infusion clinic every day to get his dose of ceftriaxone. Patient to follow-up with primary care doctor at discharge. Patient also is a former smoker and had some wheezing during hospital stay. He was given albuterol inhaler discharge. Urine drug screen positive for amphetamines most likely secondary to collection of Adderall at home. He will be discharged home in stable condition. Patient has been afebrile for last 48 hours. Patient also given appointments with pulmonology for follow-up on asthma/COPD. He will probably need formal PFTs as an outpatient. He will follow-up with his primary care doctor February 08 as previously scheduled. Physical Exam Narrative: General: No acute distress, AO x3, appears well today HEENT: Nc/at eomi Chest: mild wheezes, no c/w/r CVS: S1-S2 regular, no murmurs,no gallops, no rubs Abdomen: Soft, nontender, overall with mild tenderness around pelvic region.bowel sounds present, bilateral flank pain present but better Neuro: non-focal Discharge Data Studies Completed and Pending Completed Studies During Hospitalization Category Date Time Status CT abdomen pelvis w con* [id number] Stat Cat Scan 01/22/22 10:[address] chest abdomen pelvis [CT chest abd pel w con*] Stat Cat Scan 01/25/22 15:05 Completed XR chest 1V portable [id number] Routine Exams 01/24/22 14:06 Completed XR chest 1V portable [id number] Stat Exams 01/22/22 10:43 Completed Pending at discharge Category Date Time Status Blood Culture Stat Lab 01/22/22 12:25 Results Blood Culture Stat Lab 01/25/22 15:30 Results Radiology Impressions Abdomen/Pelvis CT 01/22/22 10:43 IMPRESSION: Bilateral peripheral linear and wedge-shaped areas of hypoattenuation in the renal parenchyma, concerning for pyelonephritis. Chest X-Ray 01/24/22 14:06 IMPRESSION: Stable hyperaerated lungs consistent with deep inspiratory effort vs reactive airway disease vs mild COPD . Chest/Abdomen/Pelvis CT 01/25/22 15:05 IMPRESSION: IMPRESSION: Bilateral pyelonephritis. COMMENTS: Consistent with the [employer]'s Incidental Findings Committee white paper (J Am Akshat Radiol 2018): Any incidental renal lesion less than 1 cm or classified as too small to characterize, or any incidental cystic renal lesion characterized as simple-appearing, is likely benign. No follow-up imaging is recommended for these lesions per consensus recommendations based on imaging criteria. ADDENDUM: 01/25/22 [id number] CHEST IMPRESSION: 1. Small ground-glass opacity in the left upper lobe could indicate pneumonia. Laboratory Results WBC 7.0 10^3/uL (4.0-10.0) 01/26/22 04:53 RBC 4.22 10^6/uL (4.1-5.3) 01/26/22 04:53 Hgb 12.5 g/dL (11.7-16.6) 01/26/22 04:53 Hct 37.7 % (42.0-52.0) L 01/26/22 04:53 MCV 89.3 fl (80-94) 01/26/22 04:53 MCH 29.6 pg (28.0-34.0) 01/26/22 04:53 MCHC 33.2 g/dL (30.0-36.0) 01/26/22 04:53 RDW 14.2 % (12.1-15.1) 01/26/22 04:53 Plt Count 187 10^3/cmm (130-400) 01/26/22 04:53 MPV 11.2 fL (7.4-10.4) H 01/26/22 04:53 Neut % (Auto) 69.9 % 01/26/22 04:53 Lymph % (Auto) 10.2 % 01/26/22 04:53 Stark % (Auto) 9.7 % 01/26/22 04:53 Eos % (Auto) 0.0 % 01/26/22 04:53 Baso % (Auto) 0.4 % 01/26/22 04:53 Neut # (Auto) 4.92 10^3/uL (1.8-7.7) 01/26/22 04:53 Lymph # (Auto) 0.7 10^3/uL (0.8-4.8) L 01/26/22 04:53 Stark # (Auto) 0.7 10^3/uL (0.2-0.9) 01/26/22 04:53 Eos # (Auto) 0.0 10^3/uL (0.0-0.8) 01/26/22 04:53 Baso # (Auto) 0.0 10^3/uL (0.0-0.1) 01/26/22 04:53 Nucleated RBC % (auto) 0 % 01/26/22 04:53 Total Counted 100 (0-100) 01/23/22 05:00 Atypical Lymphs % 0.0 % (0-5) 01/23/22 05:00 Absolute Neutrophils 14.3 10^3/cmm (1.4-6.5) H 01/23/22 05:00 Segmented Neutrophils 76 % 01/23/22 05:00 Abs Segm Neuts (Man) 12.2 10/cmm (1.6-7.1) H 01/23/22 05:00 Band Neutrophils 13.0 % 01/23/22 05:00 Abs Band Neuts (Man) 2.1 10^3/cmm (0.0-1.2) H 01/23/22 05:00 Absolute Lymphocytes 0.8 10^3/cmm (1.2-3.4) L 01/23/22 05:00 Lymphocytes (Manual) 5 % 01/23/22 05:00 Monocytes (Manual) 6.0 % 01/23/22 05:00 Absolute Monocytes 1.0 10^3/cmm (0.1-0.6) H 01/23/22 05:00 Eosinophils (Manual) 0 % 01/23/22 05:00 Absolute Eosinophils 0.0 10^3/cmm (0.0-0.7) 01/23/22 05:00 Basophils (Manual) 0.0 % 01/23/22 05:00 Absolute Basophils 0.0 10^3/cmm (0.0-0.2) 01/23/22 05:00 Nucleated RBCs # 0.0 /100WBC 01/26/22 04:53 Toxic Granulation 1+ H 01/23/22 05:00 Dohle Bodies 1+ H 01/23/22 05:00 Platelet Estimate Normal (Normal) 01/23/22 05:00 Giant Platelets Trace 01/23/22 05:00 Sodium 138 mmol/L (136-145) 01/26/22 04:53 Potassium 4.5 mmol/L (3.5-5.1) 01/26/22 04:53 Chloride 101 mmol/L (98-107) 01/26/22 04:53 Carbon Dioxide 25 mmol/L (22-29) 01/26/22 04:53 Anion Gap 16.5 (5-19) 01/26/22 04:53 BUN 18 mg/dL (6-20) 01/26/22 04:53 Creatinine 0.9 mg/dL (0.7-1.2) 01/26/22 04:53 GFR Calculation 96.0 mL/min (90-130) 01/26/22 04:53 Glucose 289 mg/dL (65-115) H 01/26/22 04:53 Estimat Average Glucose 100 01/23/22 05:00 Hemoglobin A1c 5.1 % (4.0-6.0) 01/23/22 05:00 Calculated Osmolality 298 mOsm/kg (285-295) H 01/26/22 04:53 Lactic Acid 2.2 mmol/L (0.5-2.2) 01/22/22 12:20 Lactic Acid (Sepsis) 2.3 mmol/L (0.5-2.2) H 01/22/22 15:47 Calcium 8.8 mg/dL (8.5-10.5) 01/26/22 04:53 Magnesium 2.0 mg/dL (1.7-2.3) 01/26/22 04:53 Iron 7 ug/dL (59-158) L 01/22/22 15:47 TIBC 204 mcg/dl 01/22/22 15:47 % Saturation 3.4 % (20-50) L 01/22/22 15:47 Unsat Iron Binding 197 ug/dL (112-347) 01/22/22 15:47 Total Bilirubin 0.5 mg/dL (0.15-1.2) 01/25/22 04:34 AST 62 U/L (0-40) H 01/25/22 04:34 ALT 49 U/L (0-41) H 01/25/22 04:34 Alkaline Phosphatase 105 U/L (40-130) 01/25/22 04:34 Total Protein 6.6 g/dL (6.6-8.7) 01/25/22 04:34 Albumin 3.0 g/dL (3.5-5.2) L 01/25/22 04:34 Globulin 3.6 g/dL (1.3-4.6) 01/25/22 04:34 Triglycerides 176 mg/dL (0-150) H 01/23/22 05:00 Cholesterol 78 mg/dL (0-200) 01/23/22 05:00 LDL Cholesterol, Calc 24 mg/dL (50-129) L 01/23/22 05:00 Total VLDL Cholesterol 35 mg/dL (0-30) H 01/23/22 05:00 HDL Cholesterol 19 mg/dL (60-100) L 01/23/22 05:00 Cholesterol/HDL Ratio 4.11 mg/dL (1.0-5.00) 01/23/22 05:00 Lipase 5 U/L (13-60) L 01/22/22 12:20 Vitamin B12 1217 pg/mL (232-1245) 01/22/22 15:47 Folate 4.5 ng/mL (4.5-32.2) 01/22/22 15:47 Procalcitonin 3.65 ng/mL (0-0.5) H 01/25/22 04:34 TSH 0.21 uIU/mL (0.27-4.20) L 01/22/22 15:47 Urine Color Dark yellow (Yellow) 01/22/22 10:35 Urine Appearance Clear (CLEAR) 01/22/22 10:35 Urine pH 5 (5-7) 01/22/22 10:35 Ur Specific Brewer 1.015 (1.005-1.030) 01/22/22 10:35 Urine Protein 2+ (Negative) H 01/22/22 10:35 Urine Glucose (UA) Norm (Normal) 01/22/22 10:35 Urine Ketones Negative (Negative) 01/22/22 10:35 Urine Blood 3+ (Negative) H 01/22/22 10:35 Urine Nitrate Positive (Negative) H 01/22/22 10:35 Urine Bilirubin Neg (Negative) 01/22/22 10:35 Urine Urobilinogen 1 mg/dL (Negative) H 01/22/22 10:35 Ur Leukocyte Esterase 2+ (Negative) H 01/22/22 10:35 Urine RBC 5-10 /hpf (0-2) H 01/22/22 10:35 Urine WBC 40-55 /hpf (0-5) H 01/22/22 10:35 Ur Eosinophil Smear 0 (0-0) 01/23/22 06:25 Ur Squamous Epith Cells None /hpf (0-5) 01/22/22 10:35 Amorphous Sediment Not Reportable 01/22/22 10:35 Urine Bacteria 2+ /hpf (NONE) H 01/22/22 10:35 Urine Eosinophils No eosinophils seen 01/23/22 06:25 Ur Random Sodium 51 mmol/L 01/23/22 06:25 Ur Random Potassium 21 mmol/L 01/23/22 06:25 Ur Random Chloride 47 mmol/L 01/23/22 06:25 Urine Creatinine 62 mg/dL (39-259) 01/23/22 06:25 Urine Opiates Screen Positive ng/mL (Negative) H 01/23/22 06:25 Ur Barbiturates Screen Negative ng/mL (Negative) 01/23/22 06:25 Ur Phencyclidine Scrn Negative ng/mL (Negative) 01/23/22 06:25 Ur Amphetamines Screen Positive ng/mL (Negative) H 01/23/22 06:25 U Benzodiazepines Scrn Negative ng/mL (Negative) 01/23/22 06:25 Urine Cocaine Screen Negative ng/mL (Negative) 01/23/22 06:25 U Marijuana (THC) Screen Positive ng/mL (Negative) H 01/23/22 06:25 Ethyl Alcohol < 10 mg/dL (0-10) 01/22/22 15:47 Influenza Type A Ag Negative (Negative) 01/22/22 12:10 Influenza Type B Ag Negative (Negative) 01/22/22 12:10 SARS-CoV-2 Ag (Rapid) negative (Negative) 01/22/22 11:15 Vitals Last Vital Signs Temp 97.8 F 01/27/22 08:00 Pulse 74 01/27/22 08:00 Resp 16 01/27/22 08:00 BP 146/75 01/27/22 08:00 Pulse Ox 96 01/27/22 08:00 O2 Del Method 01/27/22 08:00 Discharge Plan Discharge Patient Disposition: Home Condition: Stable Prescriptions: New hydrocodone-acetaminophen 5-325 mg Tablet 1 tab PO Q6H PRN (Reason: Moderate To Severe Pain) 3 Days Qty: 12 0RF famotidine 20 mg Tablet 20 mg PO BID 14 Days Qty: 28 0RF ferrous gluconate 324 mg (37.5 mg iron) Tablet 324 mg PO BIDWM 30 Days Qty: 30 0RF ProAir HFA 90 mcg/actuation HFA aerosol inhaler 2 inh inhalation Q4H PRN (Reason: shortness of breath or wheezing) 30 Days Qty: 8.5 0RF Continued trazodone 50 mg tablet 50 mg PO BEDTIME gabapentin 300 mg capsule 300 mg PO TID dextroamphetamine-amphetamine 10 mg Capsule,Extended Release 24hr 10 mg PO BID montelukast 10 mg tablet 10 mg PO DAILY dicyclomine 10 mg capsule 10 mg PO BID PRN (Reason: Abdominal Discomfort) Discharge Orders: Discharge Order (Routine); Ordered 01/27/22 Ordered By: Carrie Rust Referrals: Outpt IV Antibiotics [Other] (Come to the hospital here at [facility] & checkin with registration. They will then take you to the GI Lab to get your IV antibiotics for a total of 10days. Any questions call the above number & enter ext:[phone]. ) Datar,Kyle Hilton MD [Physician] - 04/18/22 12:45 pm Discharge Diet: Usual diet Discharge Activity: Resume usual activity Patient Instructions: Iron Supplements (By mouth), Famotidine (By mouth), Albuterol (By breathing), Bacteremia (ED), Opioid Safety, Pain Management, Pyelonephritis Activity Restrictions/Additional Instructions: Follow up with PCP on Feb 08 as previously scheduled. Ensure completion of antibiotics daily as advised. Please return to ER if you have a fever, worsening abdominal pain, nausea, vomitting, diarrhea or any new symptoms develop. Discharge Attestations Time Spent in Discharge Care*: greater than 30 min Quality Metrics Clinical Quality Measures [ No reported AMI, CVA or VTE this stay] Coding Level of Care Code Acute Chg FW DC note Diagnoses Sepsis A41.9 Acute renal failure type: with acute tubular necrosis Sepsis acute organ dysfunction status: with acute organ dysfunction Severe sepsis acute organ dysfunction type: acute renal failure Pyelonephritis N12 Alcohol use disorder, moderate, dependence F10.20 Acute kidney injury N17.9 Bacteremia R78.81 E coli bacteremia R78.81; B96.20
[2022-01-27] MEDS: cefTRIAXone 1,000 MG in sodium chloride 0.9% (plus) 50 ML 100 MG IV (09:55)
== END 2022-01-27 12:59 | disposition home or self-care (01) | DRG 871 ==
LOC: ER 13:24 → MEDSURG 14:14
PROVIDERS: Admitting Provider Student in an Organized Health Care Education/Training Program; Emergency Provider Emergency Medicine; Visit Provider Internal Medicine
DX: A41.9 Sepsis, unspecified organism (principal); N17.0 Acute kidney failure with tubular necrosis; N12 Tubulo-interstitial nephritis, not specified as acute or chronic; F33.9 Major depressive disorder, recurrent, unspecified; J44.9 Chronic obstructive pulmonary disease, unspecified; F90.9 Attention-deficit hyperactivity disorder, unspecified type; F10.20 Alcohol dependence, uncomplicated; F41.1 Generalized anxiety disorder; F17.210 Nicotine dependence, cigarettes, uncomplicated; F43.12 Post-traumatic stress disorder, chronic; B96.20 Unspecified Escherichia coli [E. coli] as the cause of diseases classified elsewhere
CPT/HCPCS: 36415; 71045; 71260; 74177; 80048; 80053; 80061; 80306; 80307; 81001; 82436; 82570; 82607; 82746; 83036; 83540; 83550; 83605; 83690; 83735; 84133; 84145; 84300; 84443; 85007; 85025; 85999; 87040; 87070; 87077; 87086; 87150; 87186; 87205; 87426; 87641; 87804; 94640; 94664; 96365; 96372; 96375; 99285; J0696; J1170; J1200; J1644; J2270; J2405; J2543; J2920; J2930; J7030; Q9967

== ENCOUNTER 2022-02-06 09:10 | Outpatient (RCR) | payer MEDICAID, SELFPAY ==
[2022-01-28] MEDS: cefTRIAXone 1,000 MG in sodium chloride 0.9% (plus) 50 ML 100 MG IV (08:31)
[2022-01-28 09:10] VITALS: BP 117/65; PULSE 77; RESP 18; TEMP 36; O2SAT 97
[2022-01-29] MEDS: cefTRIAXone 1,000 MG in sodium chloride 0.9% (plus) 50 ML 100 MG IV (08:25)
[2022-01-29 08:31] VITALS: BP 122/61; PULSE 81; RESP 17; TEMP 36.6; O2SAT 100
[2022-01-30 08:05] VITALS: BP 118/69; PULSE 91; RESP 18; TEMP 36.6; O2SAT 99
[2022-01-30] MEDS: cefTRIAXone 1,000 MG in sodium chloride 0.9% (plus) 50 ML 100 MG IV (08:20)
[2022-01-31] MEDS: cefTRIAXone 1,000 MG in sodium chloride 0.9% (plus) 50 ML 100 MG IV (08:30)
[2022-01-31 08:32] VITALS: BP 130/66; PULSE 80; RESP 18; TEMP 36.2; O2SAT 96
[2022-02-01] MEDS: cefTRIAXone 1,000 MG in sodium chloride 0.9% (plus) 50 ML 100 MG IV (07:37)
[2022-02-01 07:41] VITALS: BP 149/77; PULSE 108; RESP 18; TEMP 36.3; O2SAT 97
[2022-02-02] MEDS: cefTRIAXone 1,000 MG in sodium chloride 0.9% (plus) 50 ML 100 MG IV (08:07)
[2022-02-02 08:09] VITALS: BP 142/74; PULSE 79; RESP 18; TEMP 36.7; O2SAT 98
[2022-02-03] MEDS: cefTRIAXone 1,000 MG in sodium chloride 0.9% (plus) 50 ML 100 MG IV (08:15)
[2022-02-03 08:21] VITALS: BP 131/67; PULSE 105; RESP 18; TEMP 36.9; O2SAT 99
[2022-02-04 08:35] VITALS: BP 136/68; PULSE 76; RESP 18; TEMP 36.2; O2SAT 98
[2022-02-04] MEDS: cefTRIAXone 1,000 MG in sodium chloride 0.9% (plus) 50 ML 100 MG IV (08:41)
[2022-02-05 08:31] VITALS: BP 129/76; PULSE 85; RESP 14; TEMP 37.1; O2SAT 97
[2022-02-05] MEDS: cefTRIAXone 1,000 MG in sodium chloride 0.9% (plus) 50 ML 100 MG IV (08:40)
[2022-02-06 09:20] VITALS: BP 115/76; PULSE 77; RESP 18; TEMP 36.7; O2SAT 99
[2022-02-06] MEDS: cefTRIAXone 1,000 MG in sodium chloride 0.9% (plus) 50 ML 100 MG IV (09:20)
--- NOTE | 2022-02-06 09:21 | SUR.PREOP ---
0920-IV started to left forearm. 20ga., single j-loop connected, flushed with 10ml NS, patient tolerated well.
[2022-02-06 09:47] VITALS: BP 119/72; PULSE 68; RESP 17; TEMP 36.7; O2SAT 100
== END 2022-02-16 23:59 | disposition home or self-care (01) ==
LOC: GILAB 09:10
PROVIDERS: PCP Family Medicine; Visit Provider Internal Medicine
DX: A41.9 Sepsis, unspecified organism (principal); N12 Tubulo-interstitial nephritis, not specified as acute or chronic; N17.9 Acute kidney failure, unspecified; R78.81 Bacteremia
CPT/HCPCS: 96365; J0696

== ENCOUNTER 2022-02-22 14:41 | Outpatient (CLI) | payer MEDICAID, SELFPAY ==
--- NOTE | 2022-02-22 15:30 | CT_ITS ---
WS: [id number] EXAMINATION: CT lumbar spine wo con* [id number] REASON FOR EXAM: CHRONIC LOW BACK PAIN COMPARISON: None available. IV CONTRAST ADMINISTERED: None TOTAL EXAM DLP: 1126.[address] scans at [facility] use at least one of these dose optimization techniques: automated e xposure control; mA and/or kV adjustment per patient size (includes targeted exams where dose is matc hed to clinical indication); or iterative reconstruction. FINDINGS: There are 5 complete lumbar vertebra. There is normal disc height and normal vertebral outl radha. There is no sign of spondylolisthesis. No sign of disc herniation or spinal stenosis. There is no impingement or narrowing of the lateral recesses. CT/CT lumbar spine wo con* [id number] IMPRESSION: Normal CT of the lumbar spine.
== END 2022-02-22 14:42 | disposition home or self-care (01) ==
LOC: RAD 14:42
PROVIDERS: PCP Family Medicine; Visit Provider Family Medicine
DX: M54.50 Low back pain, unspecified (principal)
CPT/HCPCS: 72131

== ENCOUNTER 2022-06-16 09:52 | Emergency (ER) | payer MEDICAID, SELFPAY ==
[2022-06-16 10:12] VITALS: BP 135/78; PULSE 78; RESP 16; TEMP 36.4; O2SAT 98
[2022-06-16 10:15] VITALS: BP 138/76; PULSE 79; RESP 18; O2SAT 96
--- NOTE | 2022-06-16 10:19 | XR_ITS ---
WS: [id number] Exam: XR foot LT min 3V* [id number] Date/Time of Exam: 06/16/2022 10:22 AM Reason For Exam: pain/trauma No acute fracture or dislocation. Soft tissues are unremarkable. Joint structures are preserved. XR/XR foot LT min 3V* [id number] IMPRESSION: 1. No fracture or other significant finding.
--- NOTE | 2022-06-16 10:53 | ED_ITS ---
HPI - Extremity Problem General: Chief complaint: Extremity Injury, Lower Stated complaint: Broke Foot Time Seen by Provider: 06/16/22 10:00 History of Present Illness: Patient is a 37-year-old male comes to the ED with left foot pain. Patient injured left foot last night. He was trying to kick a piece of metal loose and he was wearing some soft dudes shoes that offer little protection. When he kicked a heavy metal he felt pain in the left foot around the metatarsal region of toes 5 4 and 3. He rates his pain currently a 6 out of 10 at rest and its a 10 out of 10 when he has to do any weightbearing. Denies any open wound or bleeding. Associated symptoms: Deny chest pain, fever(s) or rash Review of Systems Const: Denies: fever(s), chills or fatigue Eyes: Denies: change in vision or eye discomfort ENMT: Denies: throat pain, odynophagia, nasal discharge or nasal congestion Card: Denies: chest pain, palpitations, edema, swelling of feet/ankles, dyspnea on exertion or orthopnea Resp: Denies: dyspnea, productive cough or non-productive cough GI: Denies: abdominal pain, nausea, vomiting, diarrhea, constipation or hematochezia : Denies: flank pain, difficulty urinating, dysuria or hematuria Musc: Reports: extremity pain (Left foot) and extremity swelling (Left foot); Denies: neck pain or back pain Skin/Breast: Denies: rash or new lesions Neuro: Denies: headache(s), numbness in extremities or weakness in extremities FOR[facility]LY [facility], [facility] ED PFSH: Medical History (Updated 06/16/22 @ 11:15 by SHAKIRA Alvarado) Alcohol use disorder, moderate, dependence Generalized anxiety disorder Major depressive disorder, recurrent severe without psychotic features Nicotine dependence, unspecified, uncomplicated Post-traumatic stress disorder, chronic Social History (Updated 01/22/22 @ 15:23 by Kwasi Dawkins MD) Smoking and tobacco status: current every day smoker cigarettes Packs smoked per day: 1 Years cigarettes smoked: 20 Quit status (tobacco): has tried quititng Number of times tried to quit tobacco: 1 Second hand smoke exposure: Yes Physical Exam Const: COMMON NORMALS: patient oriented x3 HENMT: COMMON NORMALS: normocephalic HEAD & SCALP: normocephalic MOUTH: Normal oral and palatal mucosa present THROAT: posterior oropharynx normal and uvula midline Neck/C-Spine: COMMON NORMALS: supple GENERAL: Yes normal visual inspection Resp: COMMON NORMALS: normal respiratory effort, No retractions, No use of accessory muscles and clear to auscultation bilaterally AUSCULTATION: clear to auscultation bilaterally Cardio: COMMON NORMALS: regular rate, regular rhythm, S1 normal heart sound p resent, S2 normal heart sound present, No gallops present (Cardio), No clicks present (Cardio), No murmurs present (Cardio) and Peripheral pulses 2+ throughout RATE: regular rate RHYTHM: regular rhythm HEART SOUNDS: S1 normal heart sound present and S2 normal heart sound present PERIPHERAL PULSES: Peripheral pulses 2+ throughout GI: COMMON NORMALS: Normal to inspection, nondistended, normoactive bowel sounds present, Soft to palpation, non-tender and no masses PALPATION: Yes Soft to palpation : COMMON NORMALS: Yes no CVA tenderness BLADDER/KIDNEY EXAM: Yes no CVA tenderness Back/Pelvis: COMMON NORMALS: no CVA tenderness Extremity: NARRATIVE EXTREMITY EXAM: Left foot?ecchymosis, swelling and tenderness over the metatarsals of third fourth and fifth digit. Neurovascular intact distally. No nail damage noted. Neuro: COMMON NORMALS: patient oriented x3 GAIT: Yes Normal gait present Skin: GENERAL SKIN EXAM: dry skin Course Vital Signs: Vital signs: Vital Signs Temperature 97.5 F L 06/16/22 10:12 Pulse Rate 79 06/16/22 11:27 Respiratory Rate 18 06/16/22 11:27 Blood Pressure 138/76 06/16/22 11:27 Pulse Oximetry 96 06/16/22 11:27 Oxygen Delivery Me thod 06/16/22 10:15 MDM - Extremity (Nontraumatic) Medical Decision Making Patient is a 37-year-old male comes to the ED with left foot pain. Patient injured left foot last night. He was trying to kick a piece of metal loose and he was wearing some soft dudes shoes that offer little protection. When he kicked a heavy metal he felt pain in the left foot around the metatarsal region of toes 5 4 and 3. He rates his pain currently a 6 out of 10 at rest and its a 10 out of 10 when he has to do any weightbearing. Denies any open wound or bleeding. Vitals are stable. Left foot?ecchymosis, swelling and tenderness over the metatarsals of third fourth and fifth digit. Neurovascular intact distally. No nail damage noted. X-ray of left foot shows no acute fractures or findings. Patient was diagnosed with contusion of left foot and was stable for discharge home. Told to follow-up with his PCP in the next week for reevaluation. Rest, ice and elevate left foot. Patient understood agree with plan. Lab Data Radiology Impressions Foot X-Ray 06/16/22 10:19 IMPRESSION: 1. No fracture or other significant finding. Discharge Plan Discharge Patient Disposition: Home Clinical Impression: Contusion of foot, left Qualifiers: Encounter type: initial encounter Qualified Code(s): S90.32XA - Contusion of left foot, initial encounter Condition: Stable Prescriptions: No Action trazodone 50 mg tablet 50 mg PO BEDTIME gabapentin 300 mg capsule 300 mg PO TID dextroamphetamine-amphetamine 10 mg Capsule,Extended Release 24hr 10 mg PO BID dicyclomine 10 mg capsule 10 mg PO BID PRN (Reason: Abdominal Discomfort) ibuprofen 800 mg tablet 800 mg PO BID PRN (Reason: Pain) Ventolin HFA 90 mcg/actuation HFA aerosol inhaler 2 puff INHALATION Q6H PRN (Reason: Shortness Of Breath Or Wheezing) Discharge Orders: Discharge ED (Routine); Ordered 06/16/22 Ordered By: Vasquez Easton Referrals: Gio Aiken MD [Primary Care Provider] - Discharge Diet: Regular Discharge Activity: Increase activity as tolerated Activity Restrictions/Additional Instructions: Follow-up with medical provider as directed in the next 7 to 10 days for reevaluation. Rest, ice and elevate foot help with symptoms. Take [id number] ibuprofen per bottle instruction to help with pain. You can use crutches and limit weightbearing for the next couple days to help with healing as well. Return to the ER or your medical provider if condition worsens. Please read and understand discharge instructions. Thank you for choosing [facility] for your healthcare needs today. Please realize this is an emergency room and that we are providing you with a medical screening exam and this may not be complete and all inclusive of all the testing and or work up that you may need to determine your ailment or severity of your illness. It is very important that you follow up as instructed or that you return to the Emergency Department should you have concerns or if your condition changes or worsens in any way. Coding Level of Care Code ED Supervisor Pipelines for Maria De Jesus Hollins
[2022-06-16] MEDS: HYDROcodone-acetaminophen 5-325 mg Tablet 1 TAB PO (10:55)
[2022-06-16 11:27] VITALS: BP 138/76; PULSE 79; RESP 18; O2SAT 96
[2022-06-16] MEDS: ketorolac 60 mg/2 mL INJ IM (11:29)
== END 2022-06-16 11:30 | disposition home or self-care (01) ==
PROVIDERS: Emergency Provider Physician Assistant; PCP Family Medicine
DX: S90.32XA Contusion of left foot, initial encounter (principal); F17.210 Nicotine dependence, cigarettes, uncomplicated; W22.8XXA Striking against or struck by other objects, initial encounter
CPT/HCPCS: 73630; 96372; 99284; J1885

== ENCOUNTER → 2022-07-21 13:30 | Outpatient (BNVA) | payer MEDICAID, SELFPAY | PROVIDERS: PCP Family Medicine; Visit Provider Internal Medicine Pulmonary Disease | DX: J30.2 Other seasonal allergic rhinitis (principal) | CPT/HCPCS: 36415; 82785; 86003 ==